=== PATIENT | male | born 1955 | race Caucasian/White ===

== ENCOUNTER → 2019-07-09 13:17 | Outpatient (CLI) | payer MEDICARE, BC, SELFPAY ==
--- NOTE | 2019-07-09 13:21 | MR_ITS ---
PROCEDURE: MR CERVICAL SPINE WO CON CLINICAL INDICATION: CERVICAL SPINAL STENOSIS Neck pain, right arm pain numbness and tingling COMPARISON: No exams were available for comparison TECHNIQUE: Standard multiplanar multiecho sequences are performed without contrast. 3-D MIP and myelographic images are also rendered and reviewed FINDINGS: There is straightening of the cervical lordosis. There is normal alignment. The cranial cervical junction has an unremarkable appearance. C2-C3: Minimal prominence of the posterior longitudinal ligament versus small disc osteophyte complex without impingement C3-C4: Degenerative disc disease with ridging of the posterior endplates and bulging disc with narrowing of the canal at 10 mm without cord impingement. There is mild uncovertebral hypertrophy with mild bilateral foraminal narrowing left greater than right. C4-C5: Degenerative disc disease with minimal bulging disc and narrowing of the canal at 9 mm without impingement C5-C6: Degenerative disc disease with a small broad-based central disc protrusion which is slightly eccentric toward the right. This is impinging upon the anterior aspect of the cord slightly eccentric to the right with some minimal contour deformity of the cord. There is bilateral lateral recess narrowing and bilateral foraminal narrowing. C6-C7: Degenerative disc disease with bulging disc which is slightly eccentric toward the left with narrowing of the canal at 10 mm without cord flattening. There is bilateral foraminal narrowing. C7-T1: Unremarkable No extruded herniated disc is evident. IMPRESSION: 1. C2-C3: Minimal prominence of the posterior longitudinal ligament versus small disc osteophyte complex without impingement 2. C3-C4: Degenerative disc disease with ridging of the posterior endplates and bulging disc with narrowing of the canal at 10 mm without cord impingement. There is mild uncovertebral hypertrophy with mild bilateral foraminal narrowing left greater than right. 3. C4-C5: Degenerative disc disease with minimal bulging disc and narrowing of the canal at 9 mm without impingement 4. C5-C6: Degenerative disc disease with a small broad-based central disc protrusion which is slightly eccentric toward the right. This is impinging upon the anterior aspect of the cord slightly eccentric to the right with some minimal contour deformity of the cord. There is bilateral lateral recess narrowing and bilateral foraminal narrowing. 5. C6-C7: Degenerative disc disease with bulging disc which is slightly eccentric toward the left with narrowing of the canal at 10 mm without cord flattening. There is bilateral foraminal narrowing. Dictated by: Rishi Banegas MD 07/11/2019 08:40 Electronically signed by Rishi Banegas MD in [place] 07/11/2019 08:40
== END ==
PROVIDERS: PCP Family Medicine; Visit Provider Family Medicine
DX: M48.02 Spinal stenosis, cervical region (principal)
CPT/HCPCS: 72141; 76376

== ENCOUNTER → 2020-01-20 08:23 | Outpatient (CLI) | payer MEDICARE, BC, SELFPAY ==
[2020-01-20 10:02] LABS: Coronavirus 19 IgG Antibody Negative (Negative); Coronavirus 19 IgM Antibody Negative (Negative)
== END ==
PROVIDERS: Visit Provider Internal Medicine Gastroenterology
DX: Z01.818 Encounter for other preprocedural examination (principal); Z12.11 Encounter for screening for malignant neoplasm of colon
CPT/HCPCS: 36415; 86328

== ENCOUNTER 2020-01-21 10:21 | Day surgery (SDC) | payer MEDICARE, BC, SELFPAY ==
[2020-01-13 12:06] VITALS: BMI 23.0
[2020-01-21 10:48] VITALS: BP 137/73; PULSE 61; RESP 18; TEMP 36.1; O2SAT 99
--- NOTE | 2020-01-21 11:40 | P.PCN_ITS ---
[facility] Procedure Note Procedure Note:: Colonoscopy Procedure Report: Colonoscopy Endoscopist: Jerzy Junior II, MD Referring physician: Jett Mtz MD Date of Procedure: January 21, 2020 Equipment: Olympus 180 variable stiffness pediatric colonoscope Sedation: MAC sedation Indication: Mr. Peraza is a 64-year-old gentleman who is here for initial screening colonoscopy. He reports no abdominal pain, weight loss, change in his bowel habits or rectal bleeding. He reports no family history of colon cancer. Procedure: Prior to the procedure, a history and physical exam was performed, and patient's medications and allergies were reviewed. The risks, benefits and alternatives of the sedation and procedure were discussed with the patient. All questions were answered and informed consent was obtained. The patient was brought to the procedure room. Patient identification and proposed procedure were verified by the physician and the nurse. The patient was placed in a left lateral decubitus position and the scope was passed under direct vision. Throughout the procedure, the patient's blood pressure, pulse, and oxygen saturations were monitored continuously. The colonoscopy was accomplished without difficulty. The patient tolerated the procedure well. Findings: On digital rectal examination there was normal rectal tone. There were no external hemorrhoids. The prostate was 2+, mildly firm but symmetric without nodules. The colonoscope was introduced through the anal canal to the rectum and advanced to the cecum. The ileocecal valve and appendiceal orifice were identified. The scope was advanced a short distance into the ileum which appeared grossly normal. The scope was then withdrawn into the colon. The cecum, ascending, transverse, descending, sigmoid and rectum were grossly normal. There were no mucosal abnormalities identified. Upon retroflexion within the rectum there were grade 1 internal hemorrhoids.The preparation was good throughout with [place] Preparation Score of 8 out of 9. The cecal time was 10 minutes. Impression: 1. Normal colonoscopy with intubation of the terminal ileum Plan: The patient will not require screening/surveillance colonoscopy again for 10 years by ACS guidelines.
[2020-01-21 11:45] VITALS: BP 91/62; PULSE 54; RESP 16; TEMP 36.7; O2SAT 98
--- NOTE | 2020-01-21 11:54 | HMH.ANESCL ---
[facility] Anesthesia Checklist - Structural Data Admitted From: Home Planned Operative Procedure/s: colonoscopy Consent for Planned Operative Procedure(s) Verified: Yes - Airway Assessment C-Spine Mobility Assessed: Yes TMJ Mobility Assessed: Yes Dentition: Good Dentition - Neurological Assessment Level of Consciousness: Awake, Alert, Appropriate - Anesthesia Plan Anesthesia Risk discussed: Yes Anesthesia Plan: Patient unable to respond/answer ASA Class: II Anesthesia Type: MAC [facility] History I have reviewed the patient's past medical history: Yes Medical History: Reports:: Hypertension Denies:: Cancer, Diabetes Mellitus Type 1, Diabetes Mellitus Type 2, Internal Pacemaker, MRSA, Seizures *Have you ever received a pneumonia vaccine?: No *Have you received a flu vaccine this season?: Yes Anesthesia experience/problems:: none Other Surgeries: Yes: Coronary Stent. No: Pacemaker Amputation: No Fractures: No - *Social History Alcohol Intake: never Substance Use Type: denies use *Occupational Status:: employed Housing: house *Travel in the last 8 weeks: None Family Hx:: No significant family history
[2020-01-21 11:55] VITALS: BP 104/59; PULSE 60; RESP 18; O2SAT 98
[2020-01-21 12:05] VITALS: BP 111/60; PULSE 59; RESP 18; O2SAT 98
[2020-01-21 12:15] VITALS: BP 117/86; PULSE 58; RESP 18; O2SAT 98
[2020-01-21 12:30] VITALS: BP 120/61; PULSE 52; RESP 18; O2SAT 99
== END 2020-01-21 12:30 | disposition home or self-care (01) ==
LOC: OUTP 10:25
PROVIDERS: PCP Family Medicine; Visit Provider Internal Medicine Gastroenterology
PROC: 0DJD8ZZ Inspection of Lower Intestinal Tract, Via Natural or Artificial Opening Endoscopic (ICD-10-PCS; CPT 45378; principal; 2020-01-21 11:30)
DX: Z12.11 Encounter for screening for malignant neoplasm of colon (principal); K64.0 First degree hemorrhoids
CPT/HCPCS: G0121

== ENCOUNTER 2020-09-25 12:47 | Emergency (ER) | payer MEDICARE, BC, SELFPAY ==
[2020-09-25] VITALS (10 sets, daily range): BP systolic 117–158; BP diastolic 68–89; PULSE 52–63; RESP 12–18; TEMP 36.6; O2SAT 96–100; BMI 22.4
--- NOTE | 2020-09-25 12:45 | ECG_ITS ---
APPROVED REPORT Exam: Resting ECG HR:60 bpm ECG Measurements Heart Rate 60 AXES [place] 158 P 59 QRSd 96 QRS 58 QT 416 T 49 QTc 416 Conclusion Normal sinus rhythm Normal ECG Electronically signed by : Jett Rubin, 09/26/2020 17:02:47
--- NOTE | 2020-09-25 12:52 | XR_ITS ---
PROCEDURE: XR CHEST PORTABLE CLINICAL HISTORY: pain COMPARISON: No exams were available for comparison FINDINGS: The cardiomediastinal silhouette and pulmonary vascularity are within normal limits. The lungs are clear without infiltrates, suspicious nodules, or pleural effusions. No acute bony abnormalities. IMPRESSION: No acute findings. Dictated by: Rishi Banegas MD 09/25/2020 13:10 Rishi Banegas MD in [place] 09/25/2020 13:10
--- NOTE | 2020-09-25 12:57 | PC.NURSE ---
rad at for portable cxr
[2020-09-25 13:05] LABS: Basophils # 0.1 K/mm3 (0-0.2); Basophils % 0.7 % (0.1-2.0); Eosinophils # 0.4 K/mm3 (0.0-0.4); Eosinophils % 4.7 % (0.1-12.0); Hematocrit 40.1 % (42.0-52.0); Hemoglobin 12.9 g/dL (14.1-18.0); Lymphocytes # 2.6 K/mm3 (0.7-4.5); Lymphocytes % 33.2 % (10-50); Mean Corpuscular Volume 84.3 fl (80-94); Mean Platelet Volume 6.6 fl (7.4-10.4); Monocytes # 0.7 K/mm3 (0.1-1.0); Monocytes % 8.9 % (1.7-9.3); Neutrophils # 4.1 K/mm3 (1.8-7.8); Neutrophils % 52.4 % (37.0-80.0); Platelet Count 372 K/mm3 (142-424); Red Blood Count 4.76 M/mm3 (4.60-6.20); Red Cell Distribution Width 12.3 % (11.5-17.5); White Blood Count 7.8 K/mm3 (4.8-10.8)
[2020-09-25 13:06] LABS: Anion Gap 12.7 mEq/L (5-15); Blood Urea Nitrogen 27 mg/dl (9-20); Calcium 8.9 mg/dl (8.4-10.2); Carbon Dioxide 28 mmol/L (22.0-30.0); Chloride 105 mmol/L (98-107); Creatinine Clearance Estimated 51 mL/min (50-200); Estimated Glomerular Filt Rate 47 ml/min (>60); GFR (African American) 57 ML/MIN (>60); Glucose 70 mg/dl (74-100); Potassium 3.7 mmoL/L (3.5-5.1); Sodium 142 mmol/L (136-145)
[2020-09-25 13:22] LABS: Troponin I < 0.01 ng/ml (0.00-0.034)
--- NOTE | 2020-09-25 13:56 | HMH.EDCP ---
ED Disposition Clinical Impression: Nonspecific chest pain Disposition: Home, Self-Care Condition on Discharge: Good Instructions: DI for Chest Pain Referrals: Jett Mtz MD [Primary Care Provider] - - Critical Care Critical Care Time: No Attestation: On 09/25/20, the high probability of a clinically significant, sudden or life threatening deterioration of the following system(s) required my full and direct attention, intervention and personal management. The time I documented below is in addition to time spent performing reported procedures but includes the following listed in this critical care notation. Medical Decision Making - Medical Records Medical records reviewed: Yes: I reviewed the patient's medical records. - Andrew Inquiry Pt receiving controlled substance: No Vital Signs: 09/25/20 12:47 09/25/20 13:00 09/25/20 13:31 Temperature 97.8 F Temperature Source Oral Pulse Rate 60 56 L Pulse Rate [Radial] 63 Respiratory Rate 18 13 17 Blood Pressure 134/76 124/72 Blood Pressure [Right Arm] 158/82 H Blood Pressure Mean 95 89 Blood Pressure Mean [Right Arm] 107 Blood Pressure Position [Right Arm] Sitting 02 Sat by Pulse Oximetry 98 98 99 Oxygen Delivery Method Room Air 09/25/20 14:00 09/25/20 14:30 09/25/20 15:01 Temperature Temperature Source Pulse Rate 56 L 52 L 56 L Pulse Rate [Radial] Respiratory Rate 16 16 12 Blood Pressure 117/68 121/78 134/75 Blood Pressure [Right Arm] Blood Pressure Mean 88 98 105 Blood Pressure Mean [Right Arm] Blood Pressure Position [Right Arm] 02 Sat by Pulse Oximetry 96 97 99 Oxygen Delivery Method - Lab Data Lab Results 09/25/20 12:46: WBC 7.8, RBC 4.76, Hgb 12.9 L, Hct 40.1 L, MCV 84.3, MCH 27.0, MCHC 32.0, RDW 12.3, Plt Count 372, MPV 6.6 L, Neut % (Auto) 52.4, Lymph % (Auto) 33.2, [place] % (Auto) 8.9, Eos % (Auto) 4.7, Baso % (Auto) 0.7, Neut # (Auto) 4.1, Lymph # (Auto) 2.6, [place] # (Auto) 0.7, Eos # (Auto) 0.4, Baso # (Auto) 0.1 09/25/20 12:46: Sodium 142, Potassium 3.7, Chloride 105, Carbon Dioxide 28, Anion Gap 12.7, BUN 27 H, Creatinine 1.50 H, Estimated Creat Clear 51, Estimated GFR 47 L, Est GFR ( Amer) 57 L, Glucose 70 L, Calcium 8.9, Troponin I < 0.01 09/25/20 15:45: Troponin I < 0.01 Result diagrams: 09/25/20 12:46 09/25/20 12:46 Orders (Tests/Meds): ED MEDICATIONS Discontinued Medications Generic Name Dose Route Start Last Admin Trade Name Freq PRN Reason Stop Dose Admin Aspirin 243 mg 09/25/20 12:52 09/25/20 12:55 Aspirin 81mg Chewable Tablet PO 09/25/20 12:53 243 mg ONCE ONE Administration Sodium Chloride 1,000 mls @ 999 mls/hr 09/25/20 14:00 09/25/20 14:32 Sod Chlor 0.9% 1000ml Bag IV 09/25/20 15:00 999 mls/hr .Q1H1M NIEVES Administration ORDERS Category Date Time Status Troponin I Q3H Lab 09/25/20 19:00 Ordered - Radiology Data #1 Image(s): Chest Image Reviewed: Yes I reviewed the patient's radiology results, Yes I reviewed the patient's radiology image, Yes I have reviewed radiologist's interpretation Preliminary Findings: Normal/NAD, No Fracture Seen, No Infiltrates Seen - ECG Data Tracing #1 I reviewed this ECG and interpreted as documented below: ECG initial impression date: 09/25/20 ECG initial impression time: 12:45 ECG normal with no acute: arrhythmias, ischemia, conduction abnormalities, chamber hypertrophy Normal Sinus Rhythm: Yes - Reevaluation(s) Time: 16:27 Reevaluation #1: On reevaluation, patient is feeling much better. Chest pain-free. Patient has had 2 sets of negative troponin. No significant EKG changes. Patient is low risk based on sterling score. 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 Given strict return precautions. Verbalized understanding. - TALIA Score for Non-Stemi Age of Patient: 60-69 years old Heart Rate: 50-69 bpm Systolic Blood Pressure: 140-159 mmHg Serum Creatinine: <0.40 mg/dl
[2020-09-25 16:21] LABS: Troponin I < 0.01 ng/ml (0.00-0.034)
== END 2020-09-25 16:37 | disposition home or self-care (01) ==
PROVIDERS: Emergency Provider Emergency Medicine; PCP Family Medicine
DX: R07.89 Other chest pain (principal); I10 Essential (primary) hypertension; E78.5 Hyperlipidemia, unspecified; Z79.899 Other long term (current) drug therapy
CPT/HCPCS: 36415; 71045; 80048; 84484; 85025; 93005; 96365; 99283

== ENCOUNTER 2023-06-17 08:35 | Emergency (ER) | payer MEDICARE, BC, SELFPAY ==
[2023-06-17] VITALS (8 sets, daily range): BP systolic 121–158; BP diastolic 61–82; PULSE 46–68; RESP 12–17; TEMP 36.7; O2SAT 94–100; BMI 23.0
--- NOTE | 2023-06-17 08:35 | ECG_ITS ---
APPROVED REPORT Exam: Resting ECG HR:64 bpm ECG Measurements Heart Rate 64 AXES [place] 159 P 79 QRSd 109 QRS 77 QT 383 T 60 QTc 393 Conclusion SINUS RHYTHM Electronically signed by : CYN HARPER, 06/17/2023 15:43:25
--- NOTE | 2023-06-17 08:37 | XR_ITS ---
FINAL REPORT CLINICAL HISTORY: Precordial chest pain COMPARISON: 09/25/2020 FINDINGS: The heart size is normal. The mediastinum is normal. There is no focal infiltrate or edema. There are no pleural effusions. There is no pneumothorax. There is no osseous abnormality. IMPRESSION: No acute cardiopulmonary process Reviewed, Interpreted and Dictated by Jorgito Flaherty MD Transcribed by Allyson Roberson Authenticated and [facility]
[2023-06-17] MEDS: ASPIRIN 81MG CHEWABLE TABLET 324 MG PO (08:43)
--- NOTE | 2023-06-17 08:43 | PC.NURSE ---
Dr. Richardson at BS for pt eval
--- NOTE | 2023-06-17 08:45 | PC.NURSE ---
DR HARPER AT BEDSIDE
[2023-06-17 08:49] LABS: Basophils # 0.1 K/mm3 (0-0.2); Eosinophils # 0.4 K/mm3 (0.0-0.4); Eosinophils % 4.8 % (0.1-12.0); Hematocrit 42.1 % (42.0-52.0); Hemoglobin 13.6 g/dL (14.1-18.0); Lymphocytes # 2.6 K/mm3 (0.7-4.5); Lymphocytes % 35.1 % (10-50); Mean Corpuscular HGB Conc 32.4 g/dL (31.8-35.4); Mean Corpuscular Hemoglobin 28.5 pg (27.0-31.2); Mean Corpuscular Volume 88.1 fl (80-94); Mean Platelet Volume 7.3 fl (7.4-10.4); Monocytes # 0.6 K/mm3 (0.1-1.0); Neutrophils # 3.8 K/mm3 (1.8-7.8); Neutrophils % 51.3 % (37.0-80.0); Platelet Count 373 K/mm3 (142-424); Red Blood Count 4.78 M/mm3 (4.60-6.20); White Blood Count 7.4 K/mm3 (4.8-10.8)
--- NOTE | 2023-06-17 08:49 | HMH.EDCP ---
Discharge Plan Disposition Patient Disposition: Home, Self-Care Chief Complaint: Chest Pain Prescriptions Prescriptions: No Action atorvastatin 80 MG tablet 80 mg PO HS aspirin 81 MG tablet,chewable 81 mg PO DAILY benazepril 20 MG tablet 20 mg PO DAILY hydrochlorothiazide 25 MG tablet 25 mg PO DAILY metoprolol succinate 25 MG tablet extended release 24 hr 25 mg PO DAILY levothyroxine 112 MCG tablet 112 mcg PO DAILY Referrals Follow up/Referrals: Stacey Yun MD [Primary Care Provider] - See instructions Activity Restrictions/Add. Instructions Additional Instructions/Restrictions: Call cardiology to schedule follow-up appointment. Call your family doctor to establish care for this visit to the emergency department and schedule follow-up within 48 hours to ensure improvement. If you have any worsening of your condition or any other concerning signs or symptoms, return to the emergency department or your primary care doctor for further evaluation. Clinical Impressions Clinical Impression: Chest pressure Discharge ED Provider: Abiodun Richardson HPI General Chief Complaint: Chest Pain Stated Complaint: CHEST PAIN Time Seen by Provider: 06/17/23 08:37 Mode of Arrival: Ambulatory Source of Information: Patient Limitations: No Limitations Description of Symptoms (Recalled from ER Triage Doc. by RN): Patient complaint of center to left sided chest pain that started yesterday. States he did have some left arm numbness and that sometimes it hurts to take a breath. History of Present Illness HPI narrative: 67-year male history of hypertension, hyperlipidemia, CAD status post stenting in the LAD presenting with chest pressure. Patient states that chest pressure started yesterday, 4/15 in the afternoon. Nonexertional, nonpositional, not associated with shortness of breath, cough, nausea, vomiting, diaphoresis. It is a chest pressure/tightness that radiates to the left side of his neck. No neurologic deficits. Patient states that it feels just like it did during his previous heart attack a few years ago, came to the emergency department to be sure. Please note that above description of symptoms, in this electronic medical record under categorization of recalled from ER triage doctor by RN are reflective of an initial nursing assessment, however, is not reflective of my full history and physical exam that was personally taken and clarified. Consequentially, this preceding description of symptoms, which may include the patient's categorized chief complaint in the EMR, do not reflect my personal clinical impression, and the ultimate description of history of present illness and patient stated complaints should be deferred to this section of the note. Unless stated otherwise or congruent with this section of the note, additional signs, symptoms, or incongruence should be interpreted as inaccurate with my clinical impression. Related Data Home Medications Medication Instructions Recorded Confirmed aspirin 81 mg chewable tablet 81 mg PO DAILY heart health 01/13/20 01/21/20 atorvastatin 80 mg tablet 80 mg PO HS Cholesterol 01/13/20 01/13/20 benazepril 20 mg tablet 20 mg PO DAILY bp 01/13/20 01/13/20 hydrochlorothiazide 25 mg tablet 25 mg PO DAILY bp 01/13/20 01/13/20 levothyroxine 112 mcg tablet 112 mcg PO DAILY thyroid 01/13/20 01/13/20 metoprolol succinate 25 mg 25 mg PO DAILY bp 01/13/20 01/13/20 tablet,extended release 24 hr Allergies Allergy/AdvReac Type Severity Reaction Status Date / Time No Known Allergies Allergy Unverified 02/18/17 14:24 [facility] Disclaimer: The information contained in this section may have been updated after the patient was seen, as this information can be updated by other users. Social History Smoking Status: Never smoker alcohol intake: never substance use type: denies use current occupational status: employed Travel in the last 8 weeks: None housing: house current occupational exposures/hazards: No caffeine: Yes ROS Obtained: Yes All systems reviewed & no additional complaints except as documented Physical Exam General General appearance: alert Neck Neck exam: Present trachea midline Chest Chest inspection: Present normal inspection and symmetric chest wall rise Respiratory Respiratory exam: Present normal lung sounds bilaterally; Absent respiratory distress, wheezes, stridor, accessory muscle use or prolonged expiratory phase Cardiovascular Cardiovascular exam: Present regular rate and normal rhythm; Absent systolic murmur Extremities Exam Extremities exam: Absent edema Neurological Exam Neurological exam: Present alert, oriented X3 and CN II-XII intact Skin Skin exam: Present warm and dry; Absent cyanosis, diaphoresis or pallor HEART Score HEART Score HEART Score assessment performed?: Yes History (anamnesis): Moderately suspicious ECG: Normal Age: >65 years Risk factors: 3 or more risk factors Troponin: </= normal limit HEART Score: 5 Procedures Limited Ultrasound Indication:: Limited cardiac ultrasound Indication: Chest pain Identified cardiac views: -Cardiac parasternal long axis -Cardiac parasternal short axis -Cardiac apical four-chamber Findings: -Cardiac activity present -Gross wall motion normal, no regional abnormality -Pericardial effusion absent -Right heart strain absent -Grossly normal ejection fraction with EPSS 7 mm Impression: -Normal cardiac Images were saved to permanent archive The study was technically adequate CPT: 39739 This study was performed by me, and I personally interpreted all images/videos. Based on my clinical judgement, these images were adequate and not necessitate further imaging. Critical Care Critical Care Time Critical Care Time: No Medical Decision Making Medical Records Medical records reviewed: Yes I reviewed the patient's medical records. Andrew Inquiry Pt receiving controlled substance: No Andrew was queried for this patient: No Vital Signs Vital Signs: 06/17/23 08:36 06/17/23 09:01 06/17/23 09:30 Temperature 98.0 F Temperature Source Oral Pulse Rate 58 L 54 L Pulse Rate [Radial] 68 Respiratory Rate 16 16 17 Blood Pressure 126/75 128/76 Blood Pressure [Right Arm] 158/61 H Blood Pressure Mean 101 Blood Pressure Mean [Right Arm] 93 Blood Pressure Source [Right Arm] Automatic Cuff Blood Pressure Position [Right Arm] Sitting 02 Sat by Pulse Oximetry 99 99 94 L Oxygen Delivery Method Room Air Room Air 06/17/23 10:00 06/17/23 10:30 06/17/23 11:00 Temperature Temperature Source Pulse Rate 54 L 48 L 51 L Pulse Rate [Radial] Respiratory Rate 13 14 15 Blood Pressure 129/82 121/75 129/82 Blood Pressure [Right Arm] Blood Pressure Mean Blood Pressure Mean [Right Arm] Blood Pressure Source [Right Arm] Blood Pressure Position [Right Arm] 02 Sat by Pulse Oximetry 96 97 100 Oxygen Delivery Method Room Air Room Air Room Air 06/17/23 12:00 Temperature Temperature Source Pulse Rate 46 L Pulse Rate [Radial] Respiratory Rate 12 Blood Pressure 125/72 Blood Pressure [Right Arm] Blood Pressure Mean 93 Blood Pressure Mean [Right Arm] Blood Pressure Source [Right Arm] Blood Pressure Position [Right Arm] 02 Sat by Pulse Oximetry 98 Oxygen Delivery Method Lab Data Labs: Lab Results 06/17/23 08:35: WBC 7.4, RBC 4.78, Hgb 13.6 L, Hct 42.1, MCV 88.1, MCH 28.5, MCHC 32.4, RDW 13.0, Plt Count 373, MPV 7.3 L, Neut % (Auto) 51.3, Lymph % (Auto) 35.1, [place] % (Auto) 8.0, Eos % (Auto) 4.8, Baso % (Auto) 1.0, Neut # (Auto) 3.8, Lymph # (Auto) 2.6, [place] # (Auto) 0.6, Eos # (Auto) 0.4, Baso # (Auto) 0.1, Sodium 139, Potassium 4.1, Chloride 107, Carbon Dioxide 29, Anion Gap 7.1, BUN 24 H, Creatinine 1.30 H, Estimated Creat Clear 57, Estimated GFR 55 L, Est GFR ( Amer) 66, Glucose 98, Calcium 9.1, Total Bilirubin 1.4 H, AST 40, ALT 21, Alkaline Phosphatase 79, Troponin I < 0.01, NT-Pro-B Natriuret Pep 87.5, Total Protein 6.6, Albumin 4.0, Globulin 2.6, Albumin/Globulin Ratio 1.5 06/17/23 11:22: Troponin I < 0.01 06/17/23 08:35 06/17/23 08:35 Response Orders (Tests/Meds): ED MEDICATIONS Discontinued Medications Generic Name Dose Route Start Last Admin Trade Name Freq PRN Reason Stop Dose Admin Aspirin 324 mg 06/17/23 08:37 06/17/23 08:43 Aspirin 81mg Chewable Tablet PO 06/17/23 08:38 243 mg ONCE ONE Administration ORDERS Category Date Time Status CXR --portable [XR chest portable] Stat Exams 06/17/23 08:37 Completed POCUS Point of Care (ER Only) Stat Exams 06/17/23 08:38 Completed CBC w/Auto Diff [Complete Blood Count Auto Diff] Stat Lab 06/17/23 08:35 Completed CMP [Comprehensive Metabolic Panel] Stat Lab 06/17/23 08:35 Completed NT Pro Brain Natriuretic Pep. Stat Lab 06/17/23 08:35 Completed Trop I [Troponin I] Stat Lab 06/17/23 08:35 Completed Troponin I Q3H Lab 06/17/23 11:22 Completed Troponin I Q3H Lab 06/17/23 14:45 Ordered MDM Narrative Medical Decision Narrative: 67-year-old male with extensive cardiac history presenting with chest pressure rating to his neck on the left side. It should be noted the patient does have CAD with known moderate coronary artery disease and coronary artery stenosis which is complicating current history. Was told in the past they would not be amenable to stenting and would be fixed only by coronary artery bypass grafts. History was obtained via conversation with patient. On arrival, patient hemodynamically stable, alert, oriented x4, appropriate, GCS 15, moving all extremities spontaneously, pupils equal and reactive to light. Full physical exam performed and significant for lungs are clear to auscultation bilaterally, patient in no acute distress. Nondiaphoretic, appropriate and well-appearing overall. Cardiac exam unremarkable. Heart sounds grossly within normal limits, no evidence of murmurs. Muffled overall, but not appreciably abnormal. Pulses are equal and symmetric in the lower and upper extremities, patient has no lower extremity edema. Differential includes microvascular coronary artery disease, CHF, ACS, [place], coronary artery dissection, pneumothorax, PE, dissection, pericarditis, myocarditis, pneumothorax, aortic aneurysm, pneumonia, bronchitis, among others. Patient was given 324 mg aspirin p.o. for symptomatic management and correction of underlying abnormalities. Workup independently interpreted and significant for nonactionable CBC or chemistry, initial troponin negative. See radiology read for full review of final results. Independent interpretation of EKG shows sinus rhythm 64 beats a minute no ST or T wave changes concerning for acute ischemia. PA, QRS, QT intervals within normal limits. Patient placed on continuous cardiac monitoring and continuous pulse ox with initial blood pressure 158/61, heart rate 57, saturation 98 on room air. Heart score 5. Patient was placed in observation beginning at 8:30 AM in order to [place] with delta troponins and determine need for admission versus home-going. The patient was provided monitoring, serial exams, ultrasound while awaiting results. Independent interpretation of results demonstrated normal cardiac ultrasound (see procedure note). Delta troponin negative. On reevaluation, patient feeling much better, pain not present at this time. At this time, I feel patient is appropriate for discharge. Total observation time 4 hours. Recommended he follow-up with cardiology, he voiced his understanding. Because patient at baseline without signs or symptoms of clinical decompensation, deemed appropriate for discharge. Results were relayed to patient who voiced understanding and were agreeable to outpatient management and follow up. I discussed my clinical impression with patient and answered all questions. At this time, the evidence for any other entities in the differential is insufficient to warrant any further testing or ED observation. This was explained as well. Advisory was given that persistent or worsening symptoms require further evaluation. I confirmed the understanding of this discussion.
--- NOTE | 2023-06-17 08:52 | PC.NURSE ---
XR AT BEDSIDE
--- NOTE | 2023-06-17 08:59 | PC.NURSE ---
rounded on pt no needs at this time
[2023-06-17 09:18] LABS: Chloride 107 mmol/L (98-107); Potassium 4.1 mmoL/L (3.5-5.1); Sodium 139 mmol/L (136-145)
[2023-06-17 09:20] LABS: Blood Urea Nitrogen 24 mg/dl (9-20); Creatinine Clearance Estimated 57 mL/min (50-200); Estimated Glomerular Filt Rate 55 ml/min (>60); GFR (African American) 66 ML/MIN (>60)
[2023-06-17 09:21] LABS: Alanine Aminotransferase 21 U/L (12-78); Albumin/Globulin Ratio 1.5 (1.1-1.8); Alkaline Phosphatase 79 U/L (38-126); Anion Gap 7.1 mEq/L (5-15); Aspartate Amino Transferase 40 U/L (17-59); Bilirubin,Total 1.4 mg/dl (0.2-1.3); Calcium 9.1 mg/dl (8.4-10.2); Carbon Dioxide 29 mmol/L (22.0-30.0); Globulin 2.6 g/dL (1.3-3.2); Glucose 98 mg/dl (74-100); Total Protein,Serum 6.6 g/dl (6.3-8.2)
--- NOTE | 2023-06-17 09:35 | PC.NURSE ---
DR HARPER AT BEDSIDE WITH US
[2023-06-17 09:36] LABS: Troponin I < 0.01 ng/ml (0.00-0.034)
--- NOTE | 2023-06-17 09:36 | PC.NURSE ---
Lab called related to no lab results. States they should be released any minute.
[2023-06-17 09:54] LABS: NT Pro Brain Natriuretic Pep. 87.5 pg/mL (0-125)
--- NOTE | 2023-06-17 11:00 | PC.NURSE ---
DR HARPER AT BEDSIDE TO UPDATE PT ON POC
--- NOTE | 2023-06-17 11:52 | PC.NURSE ---
Rounded on pt. No needs voiced at this time. Call light remains within reach.
[2023-06-17 11:55] LABS: Troponin I < 0.01 ng/ml (0.00-0.034)
--- NOTE | 2023-06-17 12:23 | PC.NURSE ---
DR HARPER AT BEDSIDE TO UPDATE PT
== END 2023-06-17 12:28 | disposition home or self-care (01) ==
PROVIDERS: Emergency Provider Emergency Medicine; PCP Family Medicine
DX: R07.9 Chest pain, unspecified (principal); I11.9 Hypertensive heart disease without heart failure; I25.10 Atherosclerotic heart disease of native coronary artery without angina pectoris; E78.5 Hyperlipidemia, unspecified; Z95.5 Presence of coronary angioplasty implant and graft
CPT/HCPCS: 71045; 80053; 83880; 84484; 85025; 93005; 99285

== ENCOUNTER 2024-08-18 08:59 | Outpatient (CLI) | payer MEDICARE, BC, SELFPAY ==
--- NOTE | 2024-08-18 09:03 | XR_ITS ---
FINAL REPORT CLINICAL HISTORY: NECK PAIN x 3 days no trauma COMPARISON: None FINDINGS: CERVICAL SPINE 5 views were obtained. There is no acute fracture or malalignment. There is moderate disc space narrowing at C3-4, C5-6, and C6-7. Small posterior osteophytes are noted at C4-5 and C5-6. There is asymmetric facet hypertrophy on the left in the midcervical spine. IMPRESSION: Degenerative/chronic changes without acute process. Reviewed, Interpreted and Dictated by Jorgito Flaherty MD Transcribed by Allyson Roberson Authenticated and [facility]
--- OUTSIDE RECORDS SUMMARY | 2024-08-18 09:03 | XMS_ITS | Clinical Summary ---
Author Organization [employer] Address [address] [place] [id number] Care Team Providers Care Agricultural Education Professor Name Role Phone Unavailable Primary Care Provider Unavailabl e Social History Tobacco Use Types Packs/Day Years Used Date Smoking Tobacco: Never Assessed Sex and Gender Information Value Date Recorded Sex Assigned at Male 08/28/2021 8:42 PM CDT Legal Sex Male 8:42 PM CDT Gender Identity Male 08/28/2021 8:42 PM CDT Sexual Orientation Not on file Plan of Treatment Not on file
--- OUTSIDE RECORDS SUMMARY | 2024-08-18 09:03 | XMS_ITS | Data Portability ---
Author Organization [facility] Address [address] [facility] [address] [place] [address] Care Team Providers Care Controlled Atmospheric Furnace Brazer Name Role Phone NIKO BOYD Primary Care Provider Assessment Encounter Date Assessment Date Assessment LastModified by Organization Details LastModified Time 08/02/2019 08/02/2019 Mr. Peraza is a 63-year-old gentleman who likely has nerve impingement on the right at C5-6. However, at this point, his main complaint is neck and shoulder pain without obvious radicular arm symptoms. He does not clearly describe a C6 dermatomal distribution to his pain. I would like to send him for a right C5-6 epidural steroid injection which I think would be therapeutic and diagnostic. I will see him back after it is performed to see how he responds. If he does very well, we can see how long this will last him. If he has temporary relief, I would probably offer him a C5-6 anterior cervical discectomy and fusion to be performed on an outpatient basis. [email or web address] Not available 08/02/2019 11:15:45 Plan of Treatment Reminders Order Date Submit Date Provider Last Modified By Organization Details Last Modified Time Details Appointments None record ed. Lab None record ed. Referral None record ed. Procedures None record ed. Surgeries None record ed. Imaging None record ed. Medication Orders None record ed. Patient TargetsNo targets recorded. Patient InstructionsNo instructions recorded. Reason for Referral None Reported. Results Created Date Observation Date Name Description Value Unit Range Abnormal Flag Note LastModifiedBy Organization Detail LastModifiedTime 07/15/19 20 07/07/2019 MRI, cervi maribell spine , w/o contr ast No observ ation record ed. [email or web address] Not Available 10/10 11:58:36 Result Notes None recorded. Medical Equipment None Reported. Allergies No known drug allergies Medications Name Sig Start Date Stop Date Status Note LastModified by Organization Details LastModified Time atorvastatin 80 mg tablet active Not Available Not Available Not Available meloxicam 15 mg tablet active Not Available Not Available Not Available benazepril 20 mg tablet active Not Available Not Available Not Available hydrochlorothiazide 25 mg tablet active Not Available Not Available Not Available levothyroxine 112 mcg tablet active Not Available Not Available N ot Available metoprolol tartrate 25 mg tablet active Not Available Not Available Not Available Vitals Date Recorded Body height Body mass index (BMI) Body weight Systolic blood pressure Diastolic blood pressure Provider Name and Address Organization Details Last Updated DateTime 08/02/2019 182.88 cm 22.4 kg/m2 96905.74 g 130 mm[Hg] 82 mm[Hg] Sisi Saxena [facility] 0 10:04:31 Social History None recorded. Functional Status None recorded. Mental Status None recorded. Family History Relationship Description Onset Age of this Age Resolved Age Notes LastModified by Organization Details LastModified Time Unspecified Relation Malignant neoplastic disease [email or web address] Not available 08/01 10:03:10 Unspecified Relation Cerebrovascu lar accident [email or web address] Not available 10:03:16 Medical History Condition Response Heart Attack ([place]) Y Hypertension Y High Cholesterol Y Thyroid Disorder Y Past Encounters Encounter ID Performer Location Encounter Start Date Encounter Closed Date Diagnosis/Indication Diagnosis SNOMED-CT Code Diagnosis ICD10 Code Diagnosis Note [id number] SOILA FREIRE MD [facility]UROS[facility]G [facility] [address] [place] [address] 08/02/2019 09:22:22 08/03/2019 13:59:18 Cervical radiculopathy 13271669 M54.12 Time spent reviewing images, discussing the diagnosis and coordinati ng care: 30min Health Concerns Section Related Observation LastModified by Organization Detai ls LastModified Time None Recorded Concern Status LastModified by Organization Details LastModified Time None Recorded Advance Directives Directive None Recorded Payers Insurance Date Sequence Insurance Name Policy Number Policy Hernandez Covered Member ID Hernandez Member ID Guarantor Name 08/02/2019 2 [place] [id number] Mark Peraza [id number] Mark Peraza 08/02/2019 1 [place] Mark Peraza [id number] Mark Peraza Notes Date Note Type Note Provider Name and Address Organization Details Recorded Time 08/02/2019 text/html Mr. Peraza i s a 63-year-old gentleman with approximately 7 months of severe neck, right shoulder and arm pain. He initially had radicular symptoms, but then he may need had the neck pain. He does have occasional left-sided neck pain. The pain is 6 out of 10 and described as aching with tightness. The pain is fairly constant. He denies any alleviating or exacerbating factors. He underwent cervical traction and chiropractic manipulation for 15 visits without significant improvement. He denies any difficulty with weakness, no difficulty with walking. No loss of bowel or bladder control. He presents today with an MRI of the cervical spine performed on July 09, 2019 at [facility]. SOILA FREIRE MD [address] [place] [address], [phone], [facility] 08/02/2019 11:16:06
--- OUTSIDE RECORDS SUMMARY | 2024-08-18 09:03 | XMS_ITS ---
Author Organization Unknown Medications Date Medication Dosage DosageUnit StartDate StopDate StopReason Active DoseQuantity DoseUnit Dispense DispenseUnit Refills NdcCode DrugCode PharmacyId IsPrescription MappedMedication Srcstatus 06/25 00:00 :00 hydroCHLORO thiazide 12.5 MG Tablet 1 90 Tablet 2 [id number] P Refill
--- OUTSIDE RECORDS SUMMARY | 2024-08-18 09:03 | XMS_ITS | Encounter Summary ---
Author Organization [employer] Address [address] [place] [address] Care Team Providers Care Customer Service Specialist Name Role Phone Unavailable Primary Care Provider Unavailabl e Encounter Details Date Type Department Care Team (Late st Contact Info) Description 09/15/2019 Transcribed Document [facility] [place] [facility] [place] [address] Provider, MD Joe [address] [place] [id number] Social History Tobacco Use Types Packs/Day Years Used Date Smoking Tobacco: Never Assessed Sex and Gender Information Value Date Recorded Sex Assigned at Male 08/28/2021 8:42 PM CDT Legal Sex Male 8:42 PM CDT Gender Identity Male 08/28/2021 8:42 PM CDT Sexual Orientation Not on file documented as of this encounter Miscellaneous Notes * Cerner Conversion Note - Joe ProviderMD - 09/15/2019 10:23 AM CDT DATE OF PROCEDURE: 09/15/2019 SURGEON: Drew Mauricio MD, TIFFANY Pain Certified PROCEDURE: Cervical epidural steroid injection. LEVELS: C6-7. SEDATION: We did not give any sedation. PREPROCEDURE PAIN LEVEL: 6-7/10. POSTPROCEDURE PAIN LEVEL: 4-5/10. DIAGNOSIS: Cervical radiculopathy. PROCEDURE SUMMARY: After explaining the risks and benefits of the procedure, an informed consent was obtained. The patient was transferred to the procedure room and placed on the procedure room table in the prone position. Prior to beginning the procedure, a timeout was performed. Noninvasive monitors were applied per the procedural room nurse and monitored per protocol. The cervical spine area was prepped and draped in sterile fashion. Using fluoroscopic guidance, the cervical target areas were visualized. The skin and tissues overlying the target areas were anesthetized with 1% lidocaine mixed with bicarbonate using a 25-gauge needle. A 20-gauge Tuohy needle was advanced by the loss of resistance technique, under direct C-arm fluoroscopic guidance into the posterior epidural space without difficulty. Aspiration was negative for blood and/or CSF. Then 2 mL of Isovue was injected and an epidurogram was obtained. Intravascular and intrathecal injection was excluded. There was no paresthesia during needle placement. A total of 6 mL volume was injected containing 80 mg Depo-Medrol and 2 mL of bupivacaine 0.25% and preservative-free normal saline. The patient tolerated the procedure well and without incident. Upon completion of the procedure, the needle was then withdrawn and the injection site covered with a dressing. The patient was then transferred to the recovery area in stable condition. The patient was monitored per protocol and discharged from the clinic neurologically intact and with appropriate discharge instructions. The patient has been instructed to contact my office with any questions or difficulties. Pre and post procedure pain levels are documented in the chart. Total fluoroscopy time is 21 seconds. I am going to schedule the patient for the third cervical epidural steroid injection and then re-evaluate the patient after that. The patient has been screened for symptoms or risk factors related to COVID-19 both prior to arrival for the visit and upon arrival at the clinic for the visit today. No risk factors or symptoms are identified at today's visit and the patient has been afebrile. /[id number] Drew Mauricio MD, TIFFANY Pain Certified BASSEM/CAMILO / BASSEM / MODL /[id number] documented in this encounter Plan of Treatment Not on file documented as of this encounter Visit Diagnoses Not on filedocumented in this encounter
--- OUTSIDE RECORDS SUMMARY | 2024-08-18 09:03 | XMS_ITS | Encounter Summary ---
Author Organization [employer] Address [address] [place] [address] Care Team Providers Care Silk Washing Machine Operator Name Role Phone Unavailable Primary Care Provider Unavailabl e Encounter Details Date Type Department Care Team (Late st Contact Info) Description 10/28/2019 Transcribed Document [facility] [place] [facility] [place] [address] ProviderJoe MD [address] [place] [id number] Social History Tobacco Use Types Packs/Day Years Used Date Smoking Tobacco: Never Assessed Sex and Gender Information Value Date Recorded Sex Assigned at Male 08/28/2021 8:42 PM CDT Legal Sex Male 8:42 PM CDT Gender Identity Male 08/28/2021 8:42 PM CDT Sexual Orientation Not on file documented as of this encounter Miscellaneous Notes * Cerner Conversion Note - Historical ProviderMD - 10/28/2019 1:36 PM CDT DATE OF ADMISSION: 10/28/2019 HISTORY OF PRESENT ILLNESS: This is a 63-year-old male with a chief complaint of chronic neck pain radiated to the right upper extremity, came today for followup. We did a series of three epidural steroid injection that gave the patient temporary relief of his pain and he rated back almost 100%, but did not last more than a week or two for every injection. The patient mentioned the second epidural gave him much better help and relief because he felt it radiated to the upper extremity more often. He still has the pain in his neck radiating to right shoulder and arm and feeling the burning sensation in the arm with decreased mobility. He denied any further neurological problem or deficit. REVIEW OF SYSTEMS: Constitutional, respiratory, cardiovascular, ophthalmology, gastrointestinal, genitourinary, ENT, musculoskeletal, integumentary, neurology, psychiatry, endocrine, hematology were not changed from his last visit on September 29, 2019. PHYSICAL EXAMINATION: VITAL SIGNS: Blood pressure 143/76, heart rate 47, respiration 14, saturation 98%, temperature 99. Pain level 1. Hours of sleep 8. No change in physical and neurological exam. Muscle tone, power, sensory, and deep tendon reflexes were unchanged. The nurse's notes, vital signs, and medication were reviewed and evaluated. ASSESSMENT: 1. 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 2. Symptoms correlated with cervical radiculopathy. 3. Cervical spondylosis. PLAN: 1. I had a lengthy discussion with the patient regard to his condition, I am pleased with the result of the series of three cervical epidural steroid injection the last one on September 29, 2019 that gave the patient good help between 75% to 100% relief of pain. However, the patient is feeling more of still has some residual burning sensation in right upper extremity. He denied any physical or neurological symptoms aggravating his pain recently and he mentioned his pain level now is 1/10. 2. The patient mentioned that in general his neck pain is much better. However, his right shoulder pain with a burning sensation in the right arm that is what aggravating his pain. In the examination, the patient felt much worse when I move the arm, especially when flexion of the arm and abduction. I think is most likely secondary to some arthritis in his shoulder as well as tendinitis. I am going to schedule him under ultrasound to inject suprascapular nerve block as well as injecting his the shoulder joint to see that will give him more help and relief. 3. The patient is so sensitive to most of the medication. He could not take Neurontin, tizanidine because he thinks that most of those medication causing him having spasm. He mentioned that ibuprofen is much better than Celebrex, so he stopped the Celebrex. 4. I am going to send him for x-ray to the shoulder to rule out any major injury to the shoulder that causing his pain. 5. I am going to re-evaluate the patient after 2 to 4 weeks. The patient has been screened for symptoms or risk factors related to COVID-19 both prior to arrival for the visit and upon arrival at the clinic for the visit today. No risk factors or symptoms are identified at today's visit and the patient has been afebrile. /[id number] Drew Mauricio MD, TIFFANY Pain Certified KR/CAMILO / KR / MODL CC: Jett Mtz MD Electronically signed by Interface, [facility] Conversion Allocation Analyst Cerner at 06/20/2022 2:12 PM CDT documented in this encounter Plan of Treatment Not on file documented as of this encounter Visit Diagnoses Not on filedocumented in this encounter
--- OUTSIDE RECORDS SUMMARY | 2024-08-18 09:03 | XMS_ITS | Encounter Summary ---
Author Organization [facility] [employer] [facility] Address [address] [place] [address] Care Team Providers Care Interactive Designer Name Role Phone Unavailable Primary Care Provider Unavailabl e Encounter Details Date Type Department Care Team (Late st Contact Info) Description 12/15/2019 Transcribed Document [facility] [place] [facility] [place] [address] Provider, MD Joe [address] [place] [id number] Social History Tobacco Use Types Packs/Day Years Used Date Smoking Tobacco: Never Assessed Sex and Gender Information Value Date Recorded Sex Assigned at Male 08/28/2021 8:42 PM CDT Legal Sex Male 8:42 PM CDT Gender Identity Male 08/28/2021 8:42 PM CDT Sexual Orientation Not on file documented as of this encounter Miscellaneous Notes * Cerner Conversion Note - Historical ProviderMD - 12/15/2019 1:12 PM CDT DATE OF ADMISSION: 12/15/2019 PRIMARY PHYSICIAN: Jett Mtz MD HISTORY OF PRESENT ILLNESS: This is a 63-year-old male with a chief complaint of chronic neck and right shoulder pain for several years' duration, came today for followup. The patient had good response to the cervical epidural steroid injection and last visit on November 17, 2019, he had right shoulder injection under ultrasound. The patient mentioned he had 50% relief of pain lasted for several days and then the pain started coming back slowly. He still has some neck pain radiated to right upper extremity; however, he is able to move his arm in a better way compared to what he was before. He denied any further neurological deficit or any aggravation of his pain. REVIEW OF SYSTEMS: Constitutional, respiratory, cardiovascular, ophthalmology, gastrointestinal, genitourinary, ENT, musculoskeletal, integumentary, neurology, psychiatry, endocrine, hematology were not changed from November 17, 2019. PHYSICAL EXAMINATION: VITAL SIGNS: Blood pressure 135/61, heart rate is 55, respirations 16, saturation 98%, temperature 98.4. Pain level during the day 3, at night 8. Movement of the neck and shoulder showed much improvement since the day that he first came to the clinic. Otherwise, no change in physical and neurological exam. Muscle tone, power, sensory, and deep tendon reflexes were unchanged. The nurse's notes, vital signs, and medication were reviewed and evaluated. ASSESSMENT: 1. 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 2. Cervical radiculopathy. 3. Cervical spondylosis. 4. Right shoulder pain secondary to osteoarthritis. PLAN: 1. I had a lengthy discussion with the patient in regard to his condition. I am pleased with the result of the right shoulder injection that gave the patient 50% relief of pain, however, unfortunately the relief did not last more than several days and then the pain started coming back. I was able to move his shoulder and his movement of the shoulder is much better than before he came to our clinic for first evaluation. 2. I am going to send the patient for physical therapy to improve the range of movement of the neck and right upper extremity and shoulder. 3. I am going to give the patient a sample of Pennsaid and prescription for the Pennsaid, so he can get that from the pharmacy to use it twice a day for his shoulder pain. 4. Since the patient did not tolerate Celebrex, but he is able to tolerate feln-fel-tlkutdk medication, I encouraged him to continue with the ibuprofen over the counter. 5. I mentioned to the patient the last resort, we might consider doing the new procedure with the peripheral nerve stimulation to the shoulder using SPRINT. 6. I am going to see the patient on a p.r.n. basis. The patient has been screened for symptoms or risk factors related to COVID-19 both prior to arrival for the visit and upon arrival at the clinic for the visit today. No risk factors or symptoms are identified at today's visit and the patient has been afebrile. /[id number] Drew Mauricio MD, TIFFANY Pain Certified KR/AQ / KR / MODL CC: Jett Mtz MD Electronically signed by [facility], [facility] Conversion Lighting Fixtures Decorator Cerner at 06/20/2022 2:09 PM CDT documented in this encounter Plan of Treatment Not on file documented as of this encounter Visit Diagnoses Not on filedocumented in this encounter
--- OUTSIDE RECORDS SUMMARY | 2024-08-18 09:03 | XMS_ITS | Clinical Summary ---
Author Organization [facility] Address [address] [place] [address] Care Team Providers Care Rubble Placer Name Role Phone Jett Mtz MD Primary Care Provider [phone] Family History Medical History Relation Name Comments Stroke Mother Hypertension Other Relation Name Status Comments Mother Other Social History Tobacco Use Types Packs/Day Years Used Date Smoking Tobacco: Never Alcohol Use Standard Drinks/Week Comments No 0 (1 standard drink = 0.6 oz pur e alcohol) Sex and Gender Information Value Date Recorded Sex Assigned at Not on file Legal Sex Male 6:04 PM EDT Gender Identity Not on file Sexual Orientation Not on file Last Filed Vital Signs Vital Sign Reading Time Taken Comments Blood Pressure 118/70 05/05/2019 7:54 AM EST Pulse 48 05/05/2019 7:54 AM EST Temperature - - Respiratory Rate - - Oxygen Saturation - - Inhaled Oxygen Concentration - - Weight 78.6 kg (173 lb 4.5 oz) 05/05/2019 7:54 A M EST Height 180.3 cm (5' 11 ) 05/05/2019 7:54 AM EST Body Mass Index 24.17 05/05/2019 7:54 AM EST Plan of Treatment Not on file Care Teams Rubble Placer Relationship Specialty Start Date End Date Jett Mtz MD [address] [place] [id number] PCP - General 07/14/20
--- OUTSIDE RECORDS SUMMARY | 2024-08-18 09:03 | XMS_ITS | Encounter Summary ---
Author Organization [facility] [email or web address] Address [address] [place] [address] Care Team Providers Care Altitude Chamber Technician Name Role Phone Unavailable Primary Care Provider Unavailabl e Encounter Details Date Type Department Care Team (Late st Contact Info) Description 08/12/2019 Transcribed Document [facility] [place] [address] ProviderJoe MD [address] [place] [id number] Social History Tobacco Use Types Packs/Day Years Used Date Smoking Tobacco: Never Assessed Sex and Gender Information Value Date Recorded Sex Assigned at Male 08/28/2021 8:42 PM CDT Legal Sex Male 8:42 PM CDT Gender Identity Male 08/28/2021 8:42 PM CDT Sexual Orientation Not on file documented as of this encounter Miscellaneous Notes * Cerner Conversion Note - Historical ProviderMD - 08/12/2019 7:29 AM CDT DATE OF ADMISSION: 08/11/2019 HISTORY OF PRESENT ILLNESS: This is a 63 years old male with a chief complaint of chronic neck pain radiating to right upper extremity off and on for 2 years, became worse for the last 7 months. The patient describes his pain as a constant, tender pain localized in the neck and radiated to the right upper extremity. The patient mentioned the radiation to the mid arm with some feeling of tingling and numbness, especially down to the forearm. He also mentioned that pain would get worse, it radiated to the back of the head giving him headache. The patient denied any weakness or any radiation of the pain to the other extremities. His average pain is 7/10 to 8/10, and the pain increases by lying down, twisting. The patient did not get any benefit of any help, even chiropractor did not give him much of help. The patient mentioned that for the last 2 years, he has stiffness in his neck. He denied any specific injury; however, the pain started getting worse 7 months ago. He went to his family physician and he evaluated him. Later on, he went to the chiropractor, but he stopped going there because of the pandemic. His pain started getting worse so he went back to his family physician who sent him for an MRI and then sent him to Dr. Tha Capone. We evaluated him and sent him to our clinic to be evaluated for possible and interventional injective therapy. ALLERGIES: No known detected allergies. CURRENT MEDICATIONS: 1. Aspirin. 2. Benazepril. 3. Atorvastatin. 4. Metoprolol. 5. Levothyroxine. 6. Hydrochlorothiazide. PAST SURGICAL HISTORY: He has stent to the heart. PAST MEDICAL HISTORY: High blood pressure, coronary artery disease, and stent in 2016, thyroid disease. FAMILY HISTORY: The patient denied any family member treated same or different pain. He has positive family history of stroke and cancer. 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 Denied smoking, drinking alcohol or using illegal drugs. He went up to 12 years in school, , has 1 child. REVIEW OF SYSTEMS: Constitutional, respiratory, cardiovascular, ophthalmology, gastrointestinal, genitourinary, ENT, musculoskeletal, integumentary, neurology, psychiatry, endocrine, hematology were unremarkable. PHYSICAL EXAMINATION: VITAL SIGNS: Blood pressure 133/71, heart rate is 51, temperature 98.3, respirations 16, saturation 99%. Height, 6 feet, weight 165. Visual analogue 7 to 8/10. The patient is alert, oriented to people, time, place. Patient has mild to moderate pain behavior and discomfort. The rest of physical examination including HEENT, heart, lungs and abdomen were unremarkable. Directed physical examination: The patient has an antalgic gait. He is able to heel and toes without problem. Flexion and extension of the neck are moderately limited causing pain in both flexion and extension. Palpation of his neck reveals tenderness on the right cervical facet area more than the left with facet loading. Examining the right shoulder showed no swelling, deformity, or discoloration. There is no pain on light touch, however, deep palpation revealed mild tenderness on the right shoulder and movement of the shoulder is mildly to moderately limited to all directions. NEUROLOGICAL: Cranial nerves 2 to 12 were unremarkable. Motors 5/5 bilateral symmetrical in the upper and lower extremities. Sensory grossly nonfocal in the upper and lower extremities. Deep tendon reflex is +2/4 bilateral symmetrical in the upper and lower extremities. Straight leg raise negative bilaterally. The patient has an equivocal Spurling sign on the right side. The nurse's note and LO were reviewed and evaluated. We did chronic pain psychology evaluation in our clinic with SOAPP-R which showed the patient has minimal risk to continue any opioid medication. I did not have the MRI at the time of the patient visit. ASSESSMENT: 1. 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 2. Cervical radiculopathy could be consistent with C5-C6 distribution. 3. Cervical spondylosis. PLAN: 1. I am going to get the report of the MRI to the cervical spine that the patient had so I can review that. 2. I am hoping to try with the cervical epidural steroid injection next visit targeting the area that is causing more of the radicular pain which could be more consistent with C5-C6. 3. I am also considering trying with cervical facet block to give the patient some help and relief with his cervical spondylosis. 4. Once we get the patient some help and relief, we will start him on intense physical therapy to improve the range of movement of the neck and upper extremities. 5. I am going to start the patient on gabapentin 100 mg to take one at night, can be increased gradually to 300 mg at night. 6. I mentioned to the patient if the patient does not respond to the different modalities of management of his pain, the next step is to go back to see Dr. Tha Capone to re-evaluate him for any surgical intervention. Thank you for letting me participate in the management of this patient. I will keep you informed of this patient's progress. If you have any questions or you need further information, please do not hesitate to contact our clinic. The patient has been screened for symptoms or risk factors related to COVID-19 both prior to arrival for the visit and upon arrival at the clinic for the visit today. No risk factors or symptoms are identified at today's visit and the patient has been afebrile. /[id number] Drew Mauricio MD, TIFFANY Pain Certified KR/AQ / KR / MODGladys CC: MD Jonathan Wall MD Electronically signed by [facility], [facility] Conversion Data Analysis Intern Cerner at 06/20/2022 1:57 PM CDT documented in this encounter Plan of Treatment Not on file documented as of this encounter Visit Diagnoses Not on filedocumented in this encounter
--- OUTSIDE RECORDS SUMMARY | 2024-08-18 09:03 | XMS_ITS | Encounter Summary ---
Author Organization [employer] Address [address] [place] [address] Care Team Providers Care Road Production General Manager Name Role Phone Unavailable Primary Care Provider Unavailabl e Encounter Details Date Type Department Care Team (Late st Contact Info) Description 11/17/2019 Transcribed Document [facility] [place] [facility] [place] [address] ProviderJoe MD [address] [place] [id number] Social History Tobacco Use Types Packs/Day Years Used Date Smoking Tobacco: Never Assessed Sex and Gender Information Value Date Recorded Sex Assigned at Male 08/28/2021 8:42 PM CDT Legal Sex Male 8:42 PM CDT Gender Identity Male 08/28/2021 8:42 PM CDT Sexual Orientation Not on file documented as of this encounter Miscellaneous Notes * Cerner Conversion Note - Joe Wright MD - 11/17/2019 1:04 PM CDT DATE OF PROCEDURE: 11/17/2019 RIGHT SHOULDER INJECTION AND SUPRASCAPULAR NERVE BLOCK UNDER ULTRASOUND SURGEON: Drew Mauricio MD, TIFFANY Pain Certified PROCEDURE #1: Right shoulder joint injection under ultrasound. SIDE: Right. DIAGNOSIS: Right shoulder joint arthritis. PROCEDURE SUMMARY: After explaining the risks and benefits of the procedure, an informed consent was obtained. The patient was transferred to the procedure room and placed in a sitting position. The right shoulder was prepped and draped in sterile fashion, and ultrasound was used to detect the right shoulder joint area for approach. Prior to the beginning of the procedure, a timeout was performed, and skin and subcutaneous tissue overlying the joint was anesthetized with a 27 gauge needle and 1 mL of 1% lidocaine mixed with bicarb. Using a 25-gauge 1-1/2 inch needle advanced to the right shoulder joint area under ultrasound guidance using appropriate probe and inline approach. After careful aspiration, then 5 mL of a mixture of 1% lidocaine, 0.25% bupivacaine and 40 mg of Depo-Medrol was injected into the joint. The patient tolerated the procedure without any incident. Upon completion of the procedure, the needle was removed and the injection site was covered with a Band-Aid. The patient was transferred to the recovery room without complication and with the patient neurologically intact. Appropriate discharge instructions were given to the patient, and also we instructed the patient before discharge to contact the clinic if there are any questions or difficulties. PROCEDURE #2: Suprascapular nerve block under ultrasound guidance. SIDE: Right side. PREPROCEDURE PAIN LEVEL: 5 to 6/10. POSTPROCEDURE PAIN LEVEL: 0/10. DIAGNOSIS: Degenerative joint disease of the shoulder. PROCEDURE SUMMARY: After explaining the risks and benefits of the procedure, an informed consent was obtained. Prior to beginning procedure, a time out was performed. The upper back and shoulder area were prepped using aseptic technique. The ultrasound was directed to have the better visual approach to the shoulder scapula. The skin and subcutaneous tissue overlying the area was anesthetized using 27-gauge needle with 1 mL of 1% lidocaine mixed with bicarbonate. Then using a 25-gauge needle was advanced under ultrasound guidance using straight probe in inline technique. Then, after careful aspiration, 5 mL of 1% lidocaine mixed with 0.25% bupivacaine, and 40 mg of Depo-Medrol was injected. The patient tolerated the procedure well and without incident. Upon completion of the procedure, the needle was removed, and the injection site was covered with a dressing. During the procedure, the vital signs which include blood pressure, heart rate, and pulse ox were continuously measured. The patient was discharged from the clinic neurologically intact. PLAN: 1. I am going to continue with Celebrex 200 mg once a day. 2. I am going to see the patient after 1 month to re-evaluate him. The patient has been screened for symptoms or risk factors related to COVID-19 both prior to arrival for the visit and upon arrival at the clinic for the visit today. No risk factors or symptoms are identified at today's visit and the patient has been afebrile. /[id number] Drew Mauricio MD, TIFFANY Pain Certified KR/AQ / KR / ANGELIQUEL /[id number] documented in this encounter Plan of Treatment Not on file documented as of this encounter Visit Diagnoses Not on filedocumented in this encounter
--- OUTSIDE RECORDS SUMMARY | 2024-08-18 09:03 | XMS_ITS | Encounter Summary ---
Author Organization [employer] Address [address] [place] [address] Care Team Providers Care Promotions Associate Name Role Phone Unavailable Primary Care Provider Unavailabl e Encounter Details Date Type Department Care Team (Late st Contact Info) Description 09/10/2019 Transcribed Document [facility] [place] [facility] [place] [address] ProviderJoe MD [address] [place] [phone] Social History Tobacco Use Types Packs/Day Years Used Date Smoking Tobacco: Never Assessed Sex and Gender Information Value Date Recorded Sex Assigned at Male 08/28/2021 8:42 PM CDT Legal Sex Male 8:42 PM CDT Gender Identity Male 08/28/2021 8:42 PM CDT Sexual Orientation Not on file documented as of this encounter Miscellaneous Notes * Cerner Conversion Note - Historical ProviderMD - 09/10/2019 9:32 AM CDT DATE OF ADMISSION: 09/10/2019 HISTORY OF PRESENT ILLNESS: This is a 63-year-old male with a chief complaint of chronic neck pain radiating to right upper extremity, came today for followup. We evaluated the patient in early August 11, 2019, and scheduled him for having cervical epidural steroid injection. The patient had an epidural on August 19, 2019. The patient 50% relief of pain to his neck and more than 60% relief of pain to the right upper extremity which is still ongoing until now. The patient was pleased with that result. His pain dropped down from 5 to 2, and he is able to accomplish so many things at home and outside the house. He has stopped the gabapentin. He also stopped the gabapentin, because it is causing him more of the cramping of his leg. He denied any further aggravation to his neck and any further neurological deficit. REVIEW OF SYSTEMS: Constitutional, respiratory, cardiovascular, ophthalmology, gastrointestinal, genitourinary, ENT, musculoskeletal, integumentary, neurology, psychiatry, endocrine, hematology were not changed from his last visit on August 19, 2019. PHYSICAL EXAMINATION: VITAL SIGNS: Blood pressure 140/71, heart rate is 52, respirations 16, saturation 99%, temperature 98.7. Pain level 2. Hours of sleep is 8. Reviewing his MRI the patient had on July 11, 2019, showed multiple disk and osteophyte complex from C2-C3 to C6-C7 with multiple facet arthropathy. The patient had narrowing of the spinal canal at C3-C4 with 10 mm C4-C5 with 9 mm C5-C6 with broad-based disk protrusion eccentric to the right impinging the anterior aspect of the cord slightly eccentric to the right. There is bilateral lateral recess narrowing. At C6-C7, the canal is 10 mm with flattening of the cord. ASSESSMENT: 1. Chronic neck pain secondary to degenerative joint disease and degenerative disease to the cervical spine. 2. Symptoms correlated with cervical radiculopathy. 3. Cervical spondylosis. PLAN: 1. I had a lengthy discussion with the patient with regard to his condition, I am pleased with the result of his cervical epidural steroid injection, 08/19/2019, that gave the patient 50% relief of pain of his neck and 50% to 60% relief of pain for the right upper extremity radicular pain. The patient was so pleased with that result. His pain level dropped down from 5 to 2, and he is able to accomplish so many things at home and outside the house. 2. The patient stopped the gabapentin due to the leg cramps. 3. I am going to start the patient on Celebrex 200 mg take one a day. 4. I am going to repeat the cervical epidural steroid injection of series of 3 to see if that will give the patient additional help and relief and hopefully after that, we will start him on intense physical therapy to improve the range of movement of the neck and upper extremities. The patient has been screened for symptoms or risk factors related to COVID-19 both prior to arrival for the visit and upon arrival at the clinic for the visit today. No risk factors or symptoms are identified at today's visit and the patient has been afebrile. /[id number] Drew Mauricio MD, TIFFANY Pain Certified KR/AQ / BASSEM / MODL CC: MD Tha SCHAFFER MD Electronically signed by [facility], [facility] Conversion Boiler Tube Blower Cerner at 06/20/2022 1:50 PM CDT documented in this encounter Plan of Treatment Not on file documented as of this encounter Visit Diagnoses Not on filedocumented in this encounter
--- OUTSIDE RECORDS SUMMARY | 2024-08-18 09:03 | XMS_ITS | Encounter Summary ---
Author Organization [employer] Address [address] [place] [address] Care Team Providers Care Roller Turner Name Role Phone Unavailable Primary Care Provider Unavailabl e Encounter Details Date Type Department Care Team (Late st Contact Info) Description 08/19/2019 Transcribed Document [facility] [place] [facility] [place] [address] Provider, MD Joe [address] [place] [address] Social History Tobacco Use Types Packs/Day Years Used Date Smoking Tobacco: Never Assessed Sex and Gender Information Value Date Recorded Sex Assigned at Male 08/28/2021 8:42 PM CDT Legal Sex Male 8:42 PM CDT Gender Identity Male 08/28/2021 8:42 PM CDT Sexual Orientation Not on file documented as of this encounter Miscellaneous Notes * Cerner Conversion Note - Joe ProviderMD - 08/19/2019 9:28 AM CDT DATE OF PROCEDURE: 08/19/2019 SURGEON: Drew Mauricio MD, TIFFANY Pain Certified PROCEDURE: Cervical epidural steroid injection. LEVEL: C6-7. SEDATION: We did not give any sedation. DIAGNOSIS: Cervical radiculopathy. PROCEDURE SUMMARY: After explaining [...] mL volume was injected containing 80 mg of Depo-Medrol and 2 mL of bupivacaine 0.25% [...] my office with any questions or difficulties. Preprocedure pain level 5 to 6/10, postprocedure 4 to 5/10. I reviewed with the patient his MRI finding, July 09, 2019, which showed mostly the area of effect is the C5-6, C6-7, and I am going to see the patient after 2 weeks to re-evaluate him, and possibly, we might consider targeting the area of C5-C6. We encouraged the patient to continue with his gabapentin the dose is small so far without much effect, we are going to adjust it in the future. The patient has been screened for symptoms or risk factors related to COVID-19 both prior to arrival for the visit and upon arrival at the clinic for the visit today. No risk factors or symptoms are identified at today's visit and the patient has been afebrile. /[id number] Drew Mauricio MD, TIFFANY Pain Certified KR/AQ / KR / MODL /[id number] documented in this encounter Plan of Treatment Not on file documented as of this encounter Visit Diagnoses Not on filedocumented in this encounter
--- OUTSIDE RECORDS SUMMARY | 2024-08-18 09:03 | XMS_ITS | Referral Summary ---
Author Organization [employer] Address [address] [place] [address] Care Team Providers Care Laboratory Animal Care Veterinarian Name Role Phone Unavailable Primary Care Provider [...]
--- OUTSIDE RECORDS SUMMARY | 2024-08-18 09:03 | XMS_ITS | Encounter Summary ---
Author Organization [employer] Address [address] [place] [address] Care Team Providers Care Car Wrecker Name Role Phone Unavailable Primary Care Provider Unavailabl e Encounter Details Date Type Department Care Team (Late st Contact Info) Description 09/29/2019 Transcribed Document [facility] [place] [facility] [place] [address] Provider, MD Joe [address] [place] [id number] Social History Tobacco Use Types Packs/Day Years Used Date Smoking Tobacco: Never Assessed Sex and Gender Information Value Date Recorded Sex Assigned at Male 08/28/2021 8:42 PM CDT Legal Sex Male 8:42 PM CDT Gender Identity Male 08/28/2021 8:42 PM CDT Sexual Orientation Not on file documented as of this encounter Miscellaneous Notes * Cerner Conversion Note - Joe ProviderMD - 09/29/2019 9:58 AM CDT DATE OF PROCEDURE: 09/29/2019 SURGEON: Drew Mauricio MD, TIFFANY Pain Certified PROCEDURE: Cervical epidural steroid injection. LEVELS: C6-C7. SEDATION: We did not give any sedation. PREPROCEDURE PAIN LEVEL: 1/10. POSTPROCEDURE PAIN LEVEL: 1/10. DIAGNOSIS: Cervical radiculopathy. PROCEDURE SUMMARY: After explaining [...] pain levels are documented in the chart. TOTAL FLUOROSCOPY TIME: 10 seconds. PLAN: I am going to see the patient after one month to re-evaluate him. The patient has been screened for symptoms or risk factors related to COVID-19 both prior to arrival for the visit and upon arrival at the clinic for the visit today. No risk factors or symptoms are identified at today's visit and the patient has been afebrile. /[id number] Drew Mauricio MD, TIFFANY Pain Certified BASSEM/CAMILO / BASSEM / MODL /[id number] documented in this encounter Plan of Treatment Not on file documented as of this encounter Visit Diagnoses Not on filedocumented in this encounter
== END 2024-08-18 23:59 | disposition home or self-care (01) ==
LOC: RAD 09:00
PROVIDERS: PCP Family Medicine; Visit Provider Family Medicine
DX: M47.812 Spondylosis without myelopathy or radiculopathy, cervical region (principal)
CPT/HCPCS: 72050

== ENCOUNTER 2024-09-07 14:52 | Outpatient (CLI) | payer MEDICARE, BC, SELFPAY ==
--- NOTE | 2024-09-07 14:54 | XR_ITS ---
FINAL REPORT TECHNIQUE: Chest PA & Lateral CLINICAL HISTORY: Wheezing COMPARISON: 06/17/2023 FINDINGS: 2 views of the chest were performed. The heart size is normal. The mediastinum is within normal limits. There is no acute cardiopulmonary process. There are no pleural effusions. There is no pneumothorax. The bony thorax appears intact. IMPRESSION: No acute cardiopulmonary process. Reviewed, Interpreted and Dictated by Jorgito Flaherty MD Transcribed by Tessie Garvin Authenticated and . [facility]
--- OUTSIDE RECORDS SUMMARY | 2024-09-07 14:57 | XMS_ITS | Encounter Summary ---
Author Organization [employer] ([place], [place], [place], [place]) Address [address] [place] [address] Care Team Providers Care Advanced Research Programs Director Name Role Phone Unavailable Primary Care Provider Unavailabl e Encounter Details Date Type Department Care Team (Late st Contact Info) Description 09/10/2019 Transcribed Document [facility] [place] [facility] [place] [address] ProviderJoe MD [address] [place] [address] Social History Tobacco Use Types Packs/Day Years Used Date Smoking Tobacco: Never Assessed Sex and Gender Information Value Date Recorded Sex Assigned at Male 08/28/2021 8:42 PM CDT Legal Sex Male 8:42 PM CDT Gender Identity Male 08/28/2021 8:42 PM CDT Sexual Orientation Not on file documented as of this encounter Miscellaneous Notes * Cerner Conversion Note - Joe Wright MD - 09/10/2019 9:32 AM CDT DATE OF [...] visit and the patient has been afebrile. /[id number] Drew Mauricio MD, TIFFANY Pain Certified KR/AQ / BASSEM / MODL CC: MD Tha SCHAFFER MD Electronically signed by [facility], [facility] Conversion Patient Assessment Coordinator Cerner at 06/20/2022 1:50 PM CDT documented in this encounter Plan of Treatment Not on file documented as of this encounter Visit Diagnoses Not on filedocumented in this encounter
--- OUTSIDE RECORDS SUMMARY | 2024-09-07 14:57 | XMS_ITS | Encounter Summary ---
Author Organization [employer] ([place], [place], [place], [place]) Address [address] [place] [address] Care Team Providers Care Mangle Operator Garments Name Role Phone Unavailable Primary Care Provider Unavailabl e Encounter Details Date Type Department Care Team (Late st Contact Info) Description 09/15/2019 Transcribed Document [facility] [place] [facility] [place] [address] ProviderJoe MD [facility] [place] [address] Social History Tobacco Use Types [...] Conversion Note - Joe Wright MD - 09/15/2019 10:23 AM CDT DATE OF [...] visit and the patient has been afebrile. /[id number] Drew Mauricio MD, TIFFANY Pain Certified BASSEM/CAMILO / BASSEM / MODL /[id number] documented in this encounter Plan of Treatment Not on file documented as of this encounter Visit Diagnoses Not on filedocumented in this encounter
--- OUTSIDE RECORDS SUMMARY | 2024-09-07 14:57 | XMS_ITS | Referral Summary ---
Author Organization [employer] ([place], [place], [place], [place]) Address [address] [place] [address] Care Team Providers Care Mortgage Loan Officer Originator Name Role Phone Unavailable Primary Care Provider [...]
--- OUTSIDE RECORDS SUMMARY | 2024-09-07 14:57 | XMS_ITS | Clinical Summary ---
Author Organization [facility] Address [address] [place] [address] Care Team Providers Care Coal Sample Tester Name Role Phone Jett Mtz MD Primary Care Provider [phone] Family History Medical History Relation Name Comments [...] of Treatment Not on file Care Teams Coal Sample Tester Relationship Specialty Start Date End Date Jett Mtz MD [address] [place] [address] PCP - General 07/14/20
--- OUTSIDE RECORDS SUMMARY | 2024-09-07 14:57 | XMS_ITS | Encounter Summary ---
Author Organization [employer] ([place], [place], [place], [place]) Address [address] [place] [address] Care Team Providers Care Proposition Player Name Role Phone Unavailable Primary Care Provider Unavailabl e Encounter Details Date Type Department Care Team (Late st Contact Info) Description 08/19/[address] [facility] [place] Medicine [facility] [place] [address] ProviderJoe MD [address] [place] [address] Social History Tobacco Use Types [...] Conversion Note - Joe Wright MD - 08/19/2019 9:28 AM CDT DATE OF [...] visit and the patient has been afebrile. /[id number] Drew Mauricio MD, TIFFANY Pain Certified KR/AQ / BASSEM / MODL /[id number] documented in this encounter Plan of Treatment Not on file documented as of this encounter Visit Diagnoses Not on filedocumented in this encounter
--- OUTSIDE RECORDS SUMMARY | 2024-09-07 14:57 | XMS_ITS | Data Portability ---
Author Organization [place] - Pauline ward, [facility] Address [address] [place] [address] Care Team Providers Care Brancher Name Role Phone NIKO BOYD Primary Care [...] Body mass index (BMI) Body weight Systolic And Diastolic Provider Name and Address Organization Details Last Updated DateTime 08/02/2019 182.88 cm 22.4 kg/m2 50336.74 g 130/82 mm[Hg] Sisi Saxena [facility] 08/02/2019 10:04:31 Social History None recorded. Functional Status None recorded. Mental Status None recorded. Family History Relationship Description Onset Age of this Age Resolved Age Notes LastModified by Organization Details LastModified Time Unspecified Relation Malignant neoplastic disease [email or web address] Not available 08/01 10:03:10 Unspecified Relation Cerebrovascu lar accident [email or web address] Not available 10:03:16 Medical History Condition Response Heart Attack ([place]) Y Hypertension Y Thyroid Disorder Y High Cholesterol Y Past Encounters Encounter ID Performer Location Encounter Start Date Encounter Closed Date Diagnosis/Indication Diagnosis SNOMED-CT Code Diagnosis ICD10 Code Diagnosis Note [id number] SOILA FREIRE MD [facility] [address] [place] [address] 08/02/2019 09:22:22 08/03/2019 13:59:18 Cervical radiculopathy 36086843 M54.12 Time spent reviewing images, discussing the [...] ID Guarantor Name 08/02/2019 2 [place] [id number] Mark Peraza [id number] Mark Peraza 08/02/2019 1 [place] Mark Peraza [id number] Mark Peraza Notes Date Note Type [...] spine performed on July 09, 2019 at [facility]. SOILA FREIRE MD [address] [place] [address], [id number], [facility] 08/02/2019 11:16:06
--- OUTSIDE RECORDS SUMMARY | 2024-09-07 14:57 | XMS_ITS | Clinical Summary ---
Author Organization [employer] ([place], [place], [place], [place]) Address [address] [place] [address] Care Team Providers Care Electrical System Specialist Name Role Phone Unavailable Primary Care [...]
--- OUTSIDE RECORDS SUMMARY | 2024-09-07 14:57 | XMS_ITS | Encounter Summary ---
Author Organization [employer] ([place], [place], [place], [place]) Address [address] [place] [address] Care Team Providers Care Truck Driver Salesperson Name Role Phone Unavailable Primary Care Provider Unavailabl e Encounter Details Date Type Department Care Team (Late st Contact Info) Description 11/17/2019 Transcribed Document [facility] [place] [address] ProviderJoe MD [address] [place] [address] Social History Tobacco Use Types [...] visit and the patient has been afebrile. /[id number] Drew Mauricio MD, TIFFANY Pain Certified KR/CAMILO / BASSEM / NATHALIE /[id number] documented in this encounter Plan of Treatment Not on file documented as of this encounter Visit Diagnoses Not on filedocumented in this encounter
--- OUTSIDE RECORDS SUMMARY | 2024-09-07 14:57 | XMS_ITS | Encounter Summary ---
Author Organization [employer] ([place], [place], [place], [place]) Address [address] [place] [address] Care Team Providers Care Shipwright Helper Name Role Phone Unavailable Primary Care Provider Unavailabl e Encounter Details Date Type Department Care Team (Late st Contact Info) Description 10/28/2019 Transcribed Document [facility] [facility] [place] [facility] [place] [address] ProviderJoe MD [address] [place] [address] Social History Tobacco Use Types [...] Conversion Note - Joe Wright MD - 10/28/2019 1:36 PM CDT DATE OF [...] visit and the patient has been afebrile. /[id number] Drew Mauricio MD, TIFFANY Pain Certified KR/AQ / KR / MODL CC: Jett Mtz MD Electronically signed by Interface, [facility] Conversion Csr Technician Cerner at 06/20/2022 2:12 PM CDT documented in this encounter Plan of Treatment Not on file documented as of this encounter Visit Diagnoses Not on filedocumented in this encounter
--- OUTSIDE RECORDS SUMMARY | 2024-09-07 14:57 | XMS_ITS | Encounter Summary ---
Author Organization [employer] ([place], [place], [place], [place]) Address [address] [place] [address] Care Team Providers Care Community Development Worker Name Role Phone Unavailable Primary Care Provider Unavailabl e Encounter Details Date Type Department Care Team (Late st Contact Info) Description 09/29/2019 Transcribed Document [facility] [place] Family [place] [facility] [place] [address] ProviderJoe MD [address] [place] [address] Social History Tobacco Use Types [...] Conversion Note - Joe Wright MD - 09/29/2019 9:58 AM CDT DATE OF [...] visit and the patient has been afebrile. /[id number] Drew Mauricio MD, TIFFANY Pain Certified BASSEM/CAMILO / ABSSEM / MODL /[id number] Electronically signed by [facility] Conversion Longshore Equipment Operator Cerner at 06/20/2022 1:57 PM CDT documented in this encounter Plan of Treatment Not on file documented as of this encounter Visit Diagnoses Not on filedocumented in this encounter
--- OUTSIDE RECORDS SUMMARY | 2024-09-07 14:57 | XMS_ITS | Encounter Summary ---
Author Organization [employer] ([place], [place], [place], [place]) Address [address] [place] [address] Care Team Providers Care On Site Soil Evaluator Name Role Phone Unavailable Primary Care Provider Unavailabl e Encounter Details Date Type Department Care Team (Late st Contact Info) Description 12/15/2019 Transcribed Document [facility] [place] [address] [place] [address] ProviderJoe MD [address] [place] [address] Social History Tobacco Use Types [...] Conversion Note - Joe Wright MD - 12/15/2019 1:12 PM CDT DATE OF [...] Celebrex, but he is able to tolerate ekbs-yio-bnmynuw medication, I encouraged him to continue with [...] visit and the patient has been afebrile. /[id number] Drew Mauricio MD, TIFFANY Pain Certified KR/AQ / KR / MODL CC: Jett Mtz MD Electronically signed by [facility], [facility] Conversion Rehabilitation Psychologist Cerner at 06/20/2022 2:09 PM CDT documented in this encounter Plan of Treatment Not on file documented as of this encounter Visit Diagnoses Not on filedocumented in this encounter
--- OUTSIDE RECORDS SUMMARY | 2024-09-07 14:57 | XMS_ITS | Encounter Summary ---
Author Organization [employer] ([place], [place], [place], [place]) Address [address] [place] [address] Care Team Providers Care Economic Development Specialist Name Role Phone Unavailable Primary Care Provider Unavailabl e Encounter Details Date Type Department Care Team (Late st Contact Info) Description 08/12/2019 Transcribed Document [facility] [place] [address] ProviderJoe MD [address] [place] [address] Social History Tobacco Use Types [...] Conversion Note - Joe Wright MD - 08/12/2019 7:29 AM CDT DATE OF [...] visit and the patient has been afebrile. /[id number] Drew Mauricio MD, TIFFANY Pain Certified KR/AQ / BASSEM / ANGELIQUEL CC: MD Jonathan Wall MD Electronically signed by [facility], [facility] Conversion Separations Scientist Cerner at 06/20/2022 1:57 PM CDT documented in this encounter Plan of Treatment Not on file documented as of this encounter Visit Diagnoses Not on filedocumented in this encounter
== END 2024-09-07 23:59 | disposition home or self-care (01) ==
LOC: RAD 14:53
PROVIDERS: PCP Family Medicine; Visit Provider Physician Assistant
DX: R07.89 Other chest pain (principal); R06.2 Wheezing
CPT/HCPCS: 71046

== ENCOUNTER 2024-09-23 06:16 | Outpatient (CLI) | payer MEDICARE, BC, SELFPAY ==
--- NOTE | 2024-09-23 | CA_ITS ---
APPROVED REPORT Exam: Exercise Treadmill Technologist: Sariah Alonzo Ht: 6 ft 1 in Wt: 167 lbs BSA: 1.99 m2 Medical History Medications: aspirin, atorvastatin, benazepril, hctz, levothyroxine, metoprolol succinate ER. Stress Test Details Test: Exercise stress testing was performed using a Gonzalez protocol. HR Resting HR: 55 bpm Max Heart Rate (APMHR): 150.987567 bpm Max HR Achieved: 153 bpm Target HR (85% APMHR): 127.971222 bpm % of APMHR: 102.00 Recovery HR: 90 bpm BP Resting BP: 157.0/67.0 mmHg Max BP: 170.0/78.0 mmHg Recovery BP: 157.0/69.0 mmHg ECG Resting ECG: SB Clinical Highest Stage Achieved: III Stress ECG Conclusion Symptoms: SOB with peak exercise. Arrhythmias/Ectopy: PACs noted in recovery. PVC noted in recovery. ST-T Changes: <1.5mm ST depression. Electronically signed by : Judy Judge MD 09/23/2024 13:41:00
--- OUTSIDE RECORDS SUMMARY | 2024-09-23 06:20 | XMS_ITS | Encounter Summary ---
Author Organization [employer] ([place], [place], [place], [place]) Address [address] [place] [address] Care Team Providers Care Exterior Designer Name Role Phone Unavailable Primary Care Provider Unavailabl e Encounter Details Date Type Department Care Team (Late st Contact Info) Description 08/12/2019 Transcribed Document [facility] [place] [facility] [place] [address] ProviderJoe MD [address] [place] [address] Social History Tobacco Use Types [...] visit and the patient has been afebrile. /[id number] Drew Mauricio MD, TIFFANY Pain Certified KR/AQ / BASSEM / ANGELIQUEL CC: MD Jonathan Wall MD Electronically signed by [facility], [facility] Conversion Information Technology Account Manager Cerner at 06/20/2022 1:57 PM CDT documented in this encounter Plan of Treatment Not on file documented as of this encounter Visit Diagnoses Not on filedocumented in this encounter
--- OUTSIDE RECORDS SUMMARY | 2024-09-23 06:20 | XMS_ITS | Encounter Summary ---
Author Organization [employer] ([place], [place], [place], [place]) Address [address] [place] [address] Care Team Providers Care Student Affairs Vice President Name Role Phone Unavailable Primary Care Provider Unavailabl e Encounter Details Date Type Department Care Team (Late st Contact Info) Description 11/17/2019 Transcribed Document [facility] [place] [facility] [place] [address] ProviderJoe MD [address] [place] [address] Social History Tobacco Use Types [...] visit and the patient has been afebrile. /[id number] Drew Mauricio MD, TIFFANY Pain Certified KR/CAMILO / BASSEM / NATHALIE /[id number] Electronically signed by Shay Bush Conversion Medical Doctor Md/Medical Director Cerner at 06/20/2022 2:00 PM CDT documented in this encounter Plan of Treatment Not on file documented as of this encounter Visit Diagnoses Not on filedocumented in this encounter
--- OUTSIDE RECORDS SUMMARY | 2024-09-23 06:20 | XMS_ITS | Clinical Summary ---
Author Organization [facility] Address [address] [place] [address] Care Team Providers Care Electronic Component Processor Name Role Phone Jett Mtz MD Primary Care Provider [phone] Family History Medical History Relation Name Comments [...] of Treatment Not on file Care Teams Electronic Component Processor Relationship Specialty Start Date End Date Jett Mtz MD [address] [place] [address] PCP - General 07/14/20
--- OUTSIDE RECORDS SUMMARY | 2024-09-23 06:20 | XMS_ITS | Encounter Summary ---
Author Organization [employer] ([place], [place], [place], [place]) Address [address] [place] [address] Care Team Providers Care Extended Day Teacher Name Role Phone Unavailable Primary Care Provider Unavailabl e Encounter Details Date Type Department Care Team (Late st Contact Info) Description 09/29/2019 Transcribed Document [facility] [place] [address] ProviderJoe MD [address] [place] [address] Social History Tobacco Use Types [...] visit and the patient has been afebrile. /[id number] Drew Mauricio MD, TIFFANY Pain Certified BASSEM/CAMILO / BASSEM / MODL /[id number] Electronically signed by [facility] Conversion Tin Pourer Cerner at 06/20/2022 1:57 PM CDT documented in this encounter Plan of Treatment Not on file documented as of this encounter Visit Diagnoses Not on filedocumented in this encounter
--- OUTSIDE RECORDS SUMMARY | 2024-09-23 06:20 | XMS_ITS | Encounter Summary ---
Author Organization [employer] ([place], [place], [place], [place]) Address [address] [place] [address] Care Team Providers Care Paint Brush Maker Name Role Phone Unavailable Primary Care Provider Unavailabl e Encounter Details Date Type Department Care Team (Late st Contact Info) Description 09/15/2019 Transcribed Document [facility] [place] [facility] [place] [address] ProviderJoe MD [facility] [place] [address] Social History Tobacco Use Types [...] visit and the patient has been afebrile. /[id number] Drew Mauricio MD, TIFFANY Pain Certified BASSEM/CAMILO / BASSEM / MODL /[id number] documented in this encounter Plan of Treatment Not on file documented as of this encounter Visit Diagnoses Not on filedocumented in this encounter
--- OUTSIDE RECORDS SUMMARY | 2024-09-23 06:20 | XMS_ITS | Data Portability ---
Author Organization [place] - Pauline ward, [facility] Address [address] [place] [address] Care Team Providers Care Purchasing And Claims Supervisor Name Role Phone NIKO BOYD Primary Care [...] Updated DateTime 08/02/2019 182.88 cm 22.4 kg/m2 81449.74 g 130/82 mm[Hg] Sisi Saxena [facility] 08/02/2019 10:04:31 Social History None recorded. Functional Status None recorded. Mental Status None recorded. Family History Relationship Description Onset Age of this Age Resolved Age Notes LastModified by Organization Details LastModified Time Unspecified Relation Malignant neoplastic disease [email or web address] Not available 08/01 10:03:10 Unspecified Relation Cerebrovascu lar accident [email or web address] Not available 10:03:16 Medical History Condition Response Heart Attack ([place]) Y Hypertension Y Thyroid Disorder Y High Cholesterol Y Past Encounters Encounter ID Performer Location Encounter Start Date Encounter Closed Date Diagnosis/Indication Diagnosis SNOMED-CT Code Diagnosis ICD10 Code Diagnosis Note [id number] SOILA FREIRE MD [facility] [address] [place] [address] 08/02/2019 09:22:22 08/03/2019 13:59:18 Cervical radiculopathy [id number] M54.12 Time spent reviewing images, discussing the [...] OF [place] (MEDICARE SUPPLEMENT) [id number] Mark Peraza [id number] Mark Peraza 08/02/2019 1 [place] Mark Peraza [id number] Mark Peraza Notes Date Note Type Note Provider Name and Address Organization Details Recorded Time 08/02/2019 text/html Mr. Peraza is a 63-year-old gentleman with approximately 7 months [...] spine performed on July 09, 2019 at [facility]. SOILA FREIRE MD [address] [place] [address], [phone], [facility] 08/02/2019 11:16:06
--- OUTSIDE RECORDS SUMMARY | 2024-09-23 06:20 | XMS_ITS | Clinical Summary ---
Author Organization [employer] ([place], [place], [place], [place]) Address [address] [place] [address] Care Team Providers Care Military Aircraft Designer Name Role Phone Unavailable Primary Care [...]
--- OUTSIDE RECORDS SUMMARY | 2024-09-23 06:20 | XMS_ITS | Encounter Summary ---
Author Organization [employer] ([place], [place], [place], [place]) Address [address] [place] [address] Care Team Providers Care Subcontract Administrator Name Role Phone Unavailable Primary Care Provider Unavailabl e Encounter Details Date Type Department Care Team (Late st Contact Info) Description 12/15/2019 Transcribed Document [facility] [place] [address] [place] [address] ProvideroJe MD [address] [place] [address] Social History Tobacco Use Types [...] Celebrex, but he is able to tolerate hxoy-lnh-ztxsinx medication, I encouraged him to continue with [...] visit and the patient has been afebrile. /[id number] Drew Mauricio MD, TIFFANY Pain Certified KR/AQ / KR / MODL CC: Jett Mtz MD Electronically signed by [facility], [facility] Conversion Tire Service Supervisor Cerner at 06/20/2022 2:09 PM CDT documented in this encounter Plan of Treatment Not on file documented as of this encounter Visit Diagnoses Not on filedocumented in this encounter
--- OUTSIDE RECORDS SUMMARY | 2024-09-23 06:20 | XMS_ITS | Encounter Summary ---
Author Organization [employer] ([place], [place], [place], [place]) Address [address] [place] [address] Care Team Providers Care Regular Senior Care Provider Name Role Phone Unavailable Primary Care Provider Unavailabl e Encounter Details Date Type Department Care Team (Late st Contact Info) Description 08/19/2019 Transcribed Document [facility] [place] [facility] [place] [address] ProviderJoe MD [address] [place] [address] Social History Tobacco Use Types [...] visit and the patient has been afebrile. /[id number] Drew Mauricio MD, TIFFANY Pain Certified KR/AQ / BASSEM / MODL /[id number] documented in this encounter Plan of Treatment Not on file documented as of this encounter Visit Diagnoses Not on filedocumented in this encounter
--- OUTSIDE RECORDS SUMMARY | 2024-09-23 06:20 | XMS_ITS | Referral Summary ---
Author Organization [employer] ([place], [place], [place], [place]) Address [address] [place] [address] Care Team Providers Care Cigar Head Holer Name Role Phone Unavailable Primary Care Provider [...]
--- OUTSIDE RECORDS SUMMARY | 2024-09-23 06:20 | XMS_ITS | Encounter Summary ---
Author Organization [employer] ([place], [place], [place], [place]) Address [address] [place] [address] Care Team Providers Care Transmission Technician Name Role Phone Unavailable Primary Care Provider Unavailabl e Encounter Details Date Type Department Care Team (Late st Contact Info) Description 10/28/2019 Transcribed Document [facility] [place] [facility] [place] [address] ProvideroJe MD [address] [place] [address] Social History Tobacco Use Types [...] visit and the patient has been afebrile. /[id number] Drew Mauricio MD, TIFFANY Pain Certified KR/AQ / KR / MODL CC: Jett Mtz MD Electronically signed by Interface, [facility] Conversion Exchange Trouble Shooter Cerner at 06/20/2022 2:12 PM CDT documented in this encounter Plan of Treatment Not on file documented as of this encounter Visit Diagnoses Not on filedocumented in this encounter
--- OUTSIDE RECORDS SUMMARY | 2024-09-23 06:20 | XMS_ITS | Encounter Summary ---
Author Organization [employer] ([place], [place], [place], [place]) Address [address] [place] [address] Care Team Providers Care Machine Loader Name Role Phone Unavailable Primary Care Provider Unavailabl e Encounter Details Date Type Department Care Team (Late st Contact Info) Description 09/10/2019 Transcribed Document [facility] [place] Family Medicine [facility] [place] [address] ProviderJoe MD [address] [place] [address] Social History Tobacco Use Types [...] visit and the patient has been afebrile. /[id number] Drew Mauricio MD, TIFFANY Pain Certified KR/AQ / BASSEM / MODL CC: MD Tha SCHAFFER MD Electronically signed by [facility], [facility] Conversion Gelatin Maker Utility Cerner at 06/20/2022 1:50 PM CDT documented in this encounter Plan of Treatment Not on file documented as of this encounter Visit Diagnoses Not on filedocumented in this encounter
--- NOTE | 2024-09-23 06:30 | NM_ITS ---
APPROVED REPORT Exam: Nuclear Stress Test Indication: Chest pain, Fatigue, HTN, High cholesterol, CAD, Hx of GA Patient Location: Outpatient Stress Tech: Sariah Paige [place] Tech:Cyndi Arnett, ARRT, RT (R)(N) Ht: 6 ft 0 in Wt: 160 lbs HR: 53 bpm BP: 157/67 mmHg BSA: 1.94 m2 TID: 1.07 History: Chest pain, Fatigue, HTN, High cholesterol, CAD, Hx of GA Procedure: Patient exercised on Gonzalez protocol 7:50 minutes and sec, resting heart rate 53 bpm, resting blood pressure 157/67 mmHg, with exercise maximum heart rate achived was 155 bpm which is 103 % of the maximum predicted heart rate and blood pressure was 170/78 mmHg. Test was stopped due to SOB. Patient denied any complaint of chest pain. Patient has average exercise capacity, achieved 10.3 METs of workload on treadmill, the blood pressure response to exercise was normal. Cardiac Stress and Resting SPECT Images: Cardiac Stress and Resting SPECT images were obtained using technetium 99m Myoview 30.1 mCi stress and 10.32 mCi at rest. Resting and stress imaging in supine and prone position demonstrate a medium sized, moderate, predominantly fixed perfusion defect in the basal to mid inferior LV wall. There is a small region of reversibility towards the mid inferior LV wall. Gated imaging demonstrates a low normal global LV systolic function. LVEF is calculated at 50%. Conclusion: Medium sized, moderate, predominantly fixed perfusion defect in the basal to mid inferior LV wall. There is a small region of reversibility towards the mid inferior LV wall. Gated imaging demonstrates a low normal global LV systolic function. LVEF is calculated at 50%. Electronically signed by : Judy Judge MD 09/23/2024 13:39:20
[2024-09-23] MEDS: ISOTOPE MYOVIEW (PER STUDY) 1 DOSE IV (08:27)
[2024-09-23] MEDS: SODIUM CHLORIDE 0.9% 10ML SYR (RAD ONLY) 10 ML IV ×2 (08:27)
== END 2024-09-23 23:59 | disposition home or self-care (01) ==
LOC: RAD 06:18
PROVIDERS: PCP Family Medicine; Visit Provider Physician Assistant
DX: I49.1 Atrial premature depolarization (principal); I49.3 Ventricular premature depolarization; R94.39 Abnormal result of other cardiovascular function study; R94.31 Abnormal electrocardiogram [ECG] [EKG]; I21.9 Acute myocardial infarction, unspecified; I25.2 Old myocardial infarction; E78.00 Pure hypercholesterolemia, unspecified; I10 Essential (primary) hypertension
CPT/HCPCS: 78452; 93016; 93017; 93018; A9502

== ENCOUNTER 2024-10-15 08:10 | Day surgery (SDC) | payer MEDICARE, BC, SELFPAY ==
[2024-10-15] VITALS (12 sets, daily range): BP systolic 100–159; BP diastolic 56–76; PULSE 44–60; RESP 16–20; TEMP 36.6–36.8; O2SAT 93–100; BMI 23.1
--- NOTE | 2024-10-15 07:01 | IR_ITS ---
APPROVED REPORT Patient Location: Outpatient PROCEDURES Left heart catheterization Left ventriculogram Selective coronary angiogram Intravascular ultrasound to the LAD INDICATION Abnormal Myoview, Angina pectoris Informed consent was obtained prior to the procedure. COMPLICATIONS NONE Estimated Blood Loss: LESS THAN 10 ML TECHNIQUE One percent lidocaine used to anesthetize the right anterior aspect of the wrist. The right radial artery was accessed via the Seldinger technique. A 6 Dominican sheath was placed in the right radial artery. 2.5 mg of Verapamil, 800 mcg of nitroglycerin, 1mg Lidocaine and 5000 U Heparin were given through the arterial sheath. The JL3 catheter was also used to perform left heart catheterization, left ventriculogram and selective coronary angiogram. At the end of the procedure therapeutic heparin was administered giving a therapeutic ACT and the guide catheter was placed in left main artery followed by Choice PT extra-support wire placed in the LAD. Intravascular ultrasound probe was advanced which demonstrated a severe to critical ostial LAD stenosis. The true MLA cannot be measured as the probe could not be stopped immediately at the ostial level. When pressure was applied to insert the IVUS into the LAD it abruptly passed the ostial segment. MLA is did measure less than 3 mm??? and the ostial LAD. At the end the procedure the apparatus was removed the sheath was removed and hemostasis was achieved using TR banding patient was transferred to the postop porting in stable condition ANGIOGRAPHIC RESULTS The left main artery Normal The left anterior descending artery Has an ostial 80% calcified stenosis with mild mid vessel 20 to 30% stenosis The circumflex artery Is a dominant system and has a large ramus intermedius with a stent in the ostial proximal segment which has concentric 40 to 50% stenosis. The circumflex artery itself has not proximal 30 to 40% eccentric stenosis in the mid vessel 30% stenosis The right coronary artery Codominant and has an ostial 60 to 70% stenosis The GRIJALVA ventriculogram reveals Normal 60 to 65% The left ventricular end-diastolic pressure 10 mmHg IMPRESSION Severe ostial LAD disease as described above Moderate disease in a large proximal ramus intermedius representing in-stent restenosis Moderate to severe ostial codominant right coronary disease Normal ejection fraction Normal LVEDP PLAN 1. High intensity statin with a goal LDL less than 55 2. Patient will be referred to Dr. Freed at [facility] for evaluation of coronary bypass surgery Electronically signed by : Tha Pendleton MD 10/15/2024 11:46:09
[2024-10-15 08:41] LABS: Hematocrit 40.4 % (42.0-52.0); Hemoglobin 13.5 g/dL (14.1-18.0); Immature Granulocytes % 0.2 %; Mean Corpuscular HGB Conc 33.4 g/dL (31.8-35.4); Mean Corpuscular Hemoglobin 28.4 pg (27.0-31.2); Mean Corpuscular Volume 84.9 fl (80-94); Nucleated Red Blood Cells % 0 %; Platelet Count 327 K/mm3 (142-424); Red Blood Count 4.76 M/mm3 (4.60-6.20); Red Cell Distribution Width-SD 39.9 fL; White Blood Count 5.9 K/mm3 (4.8-10.8)
[2024-10-15] MEDS: HEPARIN 1,000 UNITS/ML 10ML VIAL (CATH LAB) 5000 UNIT IV (09:24)
[2024-10-15] MEDS: HEPARIN 1,000 UNITS/500ML NS (CATH LAB) 3000 UNIT IV (09:24)
[2024-10-15] MEDS: VERAPAMIL 2.5MG/ML 2ML VIAL 2.5 MG IV (09:24)
[2024-10-15] MEDS: 0.9 % SODIUM CHLORIDE 500 ML 25 ML IV (09:24)
[2024-10-15] MEDS: NITROGLYCERIN 800MCG/8ML SYR (CATH LAB) 800 MCG IA (09:24)
[2024-10-15] MEDS: LIDOCAINE 1% 10ML MDV 10 ML IJ (09:24)
[2024-10-15 09:30] LABS: Chloride 106 mmol/L (98-107); Potassium 4.2 mmoL/L (3.5-5.1); Sodium 139 mmol/L (136-145)
[2024-10-15 09:33] LABS: Blood Urea Nitrogen 20 mg/dl (9-20); Creatinine Clearance Estimated 67 mL/min (50-200); Creatinine,Serum 1.10 mg/dl (0.66-1.25); Estimated Glomerular Filt Rate 66 ml/min (>60); GFR (African American) 80 ML/MIN (>60)
[2024-10-15 09:34] LABS: Anion Gap 9.2 mEq/L (5-15); Calcium 8.7 mg/dl (8.4-10.2); Carbon Dioxide 28 mmol/L (22.0-30.0); Glucose 102 mg/dl (74-100)
[2024-10-15] MEDS: FENTANYL 100MCG/2ML VIAL 50 MCG IV (09:52)
[2024-10-15] MEDS: MIDAZOLAM HCL 1MG/ML 5ML VIAL 1 MG IV (09:52)
--- NOTE | 2024-10-15 12:38 | SUR.PHASEII ---
INFORMATION FAXED TO DR LEE OFFICE FOR REFERRAL APPT.
[2024-10-15] MEDS: IOPAMIDOL-370 (76%);100ML BOTTLE 80 ML IV (13:45)
[2024-10-15 13:47] LABS: CATHL Activated Clotting Time > 400 SEC (74-125)
== END 2024-10-15 12:55 | disposition home or self-care (01) ==
PROVIDERS: PCP Family Medicine; Visit Provider Internal Medicine
PROC: 4A023N7 Measurement of Cardiac Sampling and Pressure, Left Heart, Percutaneous Approach (ICD-10-PCS; CPT 93452; principal; 2024-10-15 08:15)
DX: I25.118 Atherosclerotic heart disease of native coronary artery with other forms of angina pectoris (principal); T82.855A Stenosis of coronary artery stent, initial encounter; R93.1 Abnormal findings on diagnostic imaging of heart and coronary circulation; I10 Essential (primary) hypertension; E78.49 Other hyperlipidemia; Z86.39 Personal history of other endocrine, nutritional and metabolic disease; Z95.5 Presence of coronary angioplasty implant and graft; Z79.82 Long term (current) use of aspirin; Z79.890 Hormone replacement therapy; Z79.899 Other long term (current) drug therapy; Y84.8 Other medical procedures as the cause of abnormal reaction of the patient, or of later complication, without mention of misadventure at the time of the procedure
CPT/HCPCS: 80048; 85025; 85347; 92978; 93458; 99152; C1725; C1769; J1200; J1644; J3010; J7040; Q9967

== ENCOUNTER → 2025-01-04 12:43 | Outpatient (RCR) | payer MEDICARE, BC, SELFPAY | LOC: CR 12:43 | PROVIDERS: PCP Family Medicine; Visit Provider Thoracic Surgery (Cardiothoracic Vascular Surgery) | DX: I25.110 Atherosclerotic heart disease of native coronary artery with unstable angina pectoris (principal); I10 Essential (primary) hypertension | CPT/HCPCS: 93798 ==